=== PATIENT | female | born 1955 | race Caucasian/White ===

== ENCOUNTER 2021-11-22 10:42 | Emergency (ER) | payer MEDICARE ==
--- NOTE | 2021-11-22 13:58 | ED ---
Fall HPI - General Chief Complaint: Fall Stated Complaint: fall 2 days ago, hip/neck pain Time Seen by Provider: 11/22/21 13:01 Source: patient, RN notes reviewed Mode of arrival: ambulatory Limitations: no limitations - History of Present Illness Initial Comments: 66-year-old female presents emergency Department chief complaint of fall she is. Patient states she lost her balance. Patient seen in urgent care today and sent here for CT. Patient states she did fall back striking her head and complains of head neck pain. Patient went of buttocks, left hip pain. Denies any bowel, bladder incontinence or retention or saddle anesthesias. No upper shoulder weakness. No chest pain no upper back pain. Denies any blood thinners. - Related Data Allergies Allergy/AdvReac Type Severity Reaction Status Date / Time ketorolac [From Toradol] AdvReac Anaphylaxis Verified 11/22/21 10:56 Penicillins AdvReac Rash/Hives Verified 11/22/21 10:56 tramadol AdvReac Confusion Verified 11/22/21 10:56 Review of Systems ROS Statement: Those systems with pertinent positive or pertinent negative responses have been documented in the HPI. ROS Other: All systems not noted in ROS Statement are negative. Past Medical History Past Medical History: Diabetes Mellitus, Myocardial Infarction ([place]) Past Surgical History: Coronary Bypass/CABG, Heart Catheterization, Heart Catheterization With Stent Smoking Status: Never smoker Past Alcohol Use History: None Reported Past Drug Use History: None Reported General Exam Limitations: no limitations General appearance: alert, in no apparent distress Head exam: Present: atraumatic, normocephalic, normal inspection Eye exam: Present: normal appearance, PERRL, EOMI. Absent: scleral icterus, conjunctival injection, periorbital swelling ENT exam: Present: normal exam, mucous membranes moist Neck exam: Present: normal inspection, full ROM. Absent: tenderness, meningismus, lymphadenopathy Respiratory exam: Present: normal lung sounds bilaterally. Absent: respiratory distress, wheezes, rales, rhonchi, stridor Cardiovascular Exam: Present: regular rate, normal rhythm, normal heart sounds. Absent: systolic murmur, diastolic murmur, rubs, gallop, clicks Extremities exam: Present: normal inspection, full ROM, tenderness (Left hip), normal capillary refill. Absent: pedal edema, joint swelling, calf tenderness Back exam: Present: full ROM. Absent: tenderness, paraspinal tenderness, vert ebral tenderness Neurological exam: Present: alert, oriented X3, CN II-XII intact, reflexes normal. Absent: motor sensory deficit Skin exam: Present: warm, dry, intact, normal color. Absent: rash Course Vital Signs 11/22/21 10:50 Respiratory 20 Rate Blood Pressure 139/71 O2 Sat by Pulse 98 Oximetry Medical Decision Making - Medical Decision Making 58-year-old female presented from for a fall CT of brain and C-spine are negative x-ray of the hip and pelvis show no for acute and cranial process. Patient has no red flag symptoms over the discharged in stable condition return parameters discussed. Disposition Clinical Impression: Fall, Head contusion, Contusion, hip Disposition: HOME SELF-CARE Condition: Stable Instructions (If sedation given, give patient instructions): Head Injury (ED) Additional Instructions: Please return to the Emergency Department if symptoms worsen or any other concerns. Is patient prescribed a controlled substance at d/c from ED?: No Referrals: None,Stated [Primary Care Provider] - 1-2 days Time of Disposition: 13:58
[2021-11-22 14:16] VITALS: BP 144/78; PULSE 83; RESP 18
--- NOTE | 2021-11-23 16:43 | XR ---
EXAMINATION TYPE: XR Hip LT and AP Pelvis DATE OF EXAM: 11/22/2021 COMPARISON: NONE HISTORY: Fall injury with pain. TECHNIQUE: A single AP view of the pelvis is obtained. Two views of the left hip are obtained. FINDINGS: There is no acute fracture/dislocation evident in the pelvis. The sacroiliac joints appea r symmetric and unremarkable. Pubic symphysis is intact. Asymmetric moderate to severe axial joint sp kamran loss in the right hip. Surgical clips right groin noted. Two views of left hip show no acute fracture or dislocation. Partial visualization of fixation hardwa re in the left femur through healed fracture. Surgical clips left groin region noted. Stent graft di stally in the superficial femoral artery is partially imaged. IMPRESSION: There is no acute fracture or dislocation in the pelvis or left hip. Preliminary report provided by on site radiologist.
--- NOTE | 2021-11-23 16:45 | CT ---
EXAMINATION TYPE: CT brain jonathan rouse DATE OF EXAM: 11/22/2021 COMPARISON: NONE HISTORY: Headache and neck pain after fall injury CT DLP: 72496 mGycm. Automated Exposure Control for Dose Reduction was Utilized. TECHNIQUE: CT scan of the head and cervical spine are performed without contrast. FINDINGS: There is no acute intracranial hemorrhage, mass effect, or midline shift identified. The ventricles and sulci are within normal limits in size for patient's age. Calvarium is intact. Rodriguez- white matter differentiation fairly well maintained. The globes are intact and the visualized sinuses are clear. Cervical spine is visualized in its entirety from C1 through upper thoracic levels and demonstrates s atisfactory alignment without evidence of acute fracture or dislocation. Prevertebral soft tissue ap pears within normal limits. The C1-C2 articulation is within normal limits on the coronal images. V ertebral body heights are maintained. Moderate spurring and disc space narrowing C5-C6 and C6-C7 leve ls is present. Posterior calcified disc herniations efface the anterior thecal sac on sagittal and ax ial images at this level. Additional posterior disc herniation at C4-C5 level effaces the anterior th ecal sac. Thyroid gland appears within normal limits. Lung apices show no pneumothorax. There is part ial visualization of sternal wires noted. IMPRESSION: 1. There is no acute fracture or dislocation evident in the cervical spine. 2. No acute intracranial hemorrhage or midline shift is seen. Preliminary report provided by on site radiologist.
== END 2021-11-22 14:16 | disposition home or self-care (01) ==
LOC: EC 10:42
DX: T14.8XXA Other injury of unspecified body region, initial encounter (principal); S00.93XA Contusion of unspecified part of head, initial encounter; E11.9 Type 2 diabetes mellitus without complications; Z82.49 Family history of ischemic heart disease and other diseases of the circulatory system; Z88.6 Allergy status to analgesic agent; Z88.8 Allergy status to other drugs, medicaments and biological substances; Z88.0 Allergy status to penicillin; W19.XXXA Unspecified fall, initial encounter
CPT/HCPCS: 70450; 72125; 73502; 99284

== ENCOUNTER 2021-11-25 12:19 | Inpatient (IN) | payer MEDICARE ==
[2021-11-25] MEDS ORDERED: HYDROmorphone 0.5 MG/0.5 ML SYRINGE IVP STA (12:33)
--- NOTE | 2021-11-25 12:45 | ED ---
General Adult HPI - General Chief complaint: Chest Pain Stated complaint: poss heart attack Time Seen by Provider: 11/25/21 12:23 Source: patient, RN notes reviewed, old records reviewed Mode of arrival: wheelchair Limitations: no limitations - History of Present Illness Initial comments: 66-year-old female with severe chest pain which began about 30 minutes prior to arrival. Patient has sudden onset pain radiating to her bilateral shoulder blades, and her neck and jaw. She has previous history of CAD status post coronary artery bypass graft and stenting in the remote past. She is a known diabetic. Nonsmoker. Patient took 3 nitroglycerin at home without significant relief. - Related Data Allergies Allergy/AdvReac Type Severity Reaction Status Date / Time Iodine and Iodide Containing AdvReac Rash/Hives Verified 11/25/21 13:19 Produc ketorolac [From Toradol] AdvReac Anaphylaxis Verified 11/25/21 12:20 Penicillins AdvReac Rash/Hives Verified 11/25/21 12:20 tramadol AdvReac Confusion Verified 11/25/21 12:20 Review of Systems ROS Statement: Those systems with pertinent positive or pertinent negative responses have been documented in the HPI. ROS Other: All systems not noted in ROS Statement are negative. Past Medical History Past Medical History: Diabetes Mellitus, Myocardial Infarction ([place]) History of Any Multi-Drug Resistant Organisms: None Reported Past Surgical History: Coronary Bypass/CABG, Heart Catheterization, Heart Catheterization With Stent Past Psychological History: No Psychological Hx Reported Smoking Status: Never smoker Past Alcohol Use History: None Reported Past Drug Use History: None Reported General Exam Limitations: no limitations General appearance: alert, in no apparent distress Head exam: Present: atraumatic, normocephalic Eye exam: Present: normal appearance, PERRL ENT exam: Present: normal exam Neck exam: Present: normal inspection. Absent: tenderness, meningismus Respiratory exam: Present: normal lung sounds bilaterally. Absent: respiratory distress, wheezes Cardiovascular Exam: Present: regular rate, normal rhythm GI/Abdominal exam: Present: soft. Absent: distended, tenderness, guarding Extremities exam: Present: normal inspection, normal capillary refill. Absent: pedal edema Neurological exam: Present: alert, oriented X3, CN II-XII intact. Absent: motor sensory deficit Psychiatric exam: Present: anxious Skin exam: Present: diaphoretic Course Vital Signs 11/25/21 11/25/2122 12:21 12:22 12:29 Temperature 98.2 F Pulse Rate 88 92 Respiratory 16 26 H 24 Rate Blood Pressure 112/70 147/84 O2 Sat by Pulse 97 100 Oximetry 11/25/21 11/25/21 11/25/21 12:31 13:00 13:30 Temperature Pulse Rate 80 Respiratory 18 18 20 Rate Blood Pressure 147/84 117/71 117/65 O2 Sat by Pulse 98 98 98 Oximetry 11/25/21 11/25/21 14:00 14:30 Temperature Pulse Rate Respiratory 20 20 Rate Blood Pressure 156/72 116/68 O2 Sat by Pulse 100 100 Oximetry EKG Findings - EKG Comments: EKG Findings:: EKG: Sinus rhythm rate of 90, Q-wave and T-wave inversion in the inferior leads, no ST segment elevation TN interval 164, QRS duration 86, QTC 3 91. EKG: Sinus rhythm unchanged Q-wave and T-wave inversion from prior, no ST segment elevation rate of 83, TN interval 162, QRS duration 88, QTC 397. Medical Decision Making - Medical Decision Making 66-year-old female with chief complaint of chest pain radiating to the right arm and back. Patient is hypertensive upon arrival. She has pain radiating to the back, there was concern for both ACS and aortic pathology. EKG was sinus without ST segment elevation, CT angiography was performed which is negative for dissection or acute findings. Patient's initial troponin is negative but given her risk factor she will be kept in observation for stroke or headache enzymes, telemetry, cardiology consultation. Case discussed with [facility] [place]. - Lab Data Result diagrams: 11/25/21 12:36 11/25/21 12:36 Lab Results 11/25/21 11/25/21 11/25/21 Range/Units 12:36 12:36 12:36 WBC 5.0 (3.8-10.6) k/uL RBC 5.59 H (3.80-5.40) m/uL Hgb 15.8 (11.4-16.0) gm/dL Hct 47.6 H (34.0-46.0) % MCV 85.0 (80.0-100.0) fL MCH 28.2 (25.0-35.0) pg MCHC 33.2 (31.0-37.0) g/dL RDW 13.6 (11.5-15.5) % Plt Count 125 L (150-450) k/uL MPV 10.7 Neutrophils % 61 % Lymphocytes % 27 % Monocytes % 8 % Eosinophils % 1 % Basophils % 2 % Neutrophils # 3.0 (1.3-7.7) k/uL Lymphocytes # 1.3 (1.0-4.8) k/uL Monocytes # 0.4 (0-1.0) k/uL Eosinophils # 0.0 (0-0.7) k/uL Basophils # 0.1 (0-0.2) k/uL PT 10.2 (9.0-12.0) sec INR 0.9 (<1.2) APTT 24.2 (22.0-30.0) sec Sodium 139 (137-145) mmol/L Potassium 4.2 (3.5-5.1) mmol/L Chloride 104 (98-107) mmol/L Carbon Dioxide 16 L (22-30) mmol/L Anion Gap 19 mmol/L BUN 42 H (7-17) mg/dL Creatinine 1.34 H (0.52-1.04) mg/dL Est GFR (CKD-EPI)AfAm 47 (>60 ml/min/1.73 sqM) Est GFR (CKD-EPI)NonAf 41 (>60 ml/min/1.73 sqM) Glucose 221 H (74-99) mg/dL Calcium 9.0 (8.4-10.2) mg/dL Magnesium 1.9 (1.6-2.3) mg/dL Total Bilirubin 0.5 (0.2-1.3) mg/dL AST 37 H (14-36) U/L ALT 22 (4-34) U/L Alkaline Phosphatase 111 (38-126) U/L Troponin I (0.000-0.034) ng/mL Total Protein 7.1 (6.3-8.2) g/dL Albumin 4.4 (3.5-5.0) g/dL Lipase 204 (23-300) U/L 11/25/21 Range/Units 12:36 WBC (3.8-10.6) k/uL RBC (3.80-5.40) m/uL Hgb (11.4-16.0) gm/dL Hct (34.0-46.0) % MCV (80.0-100.0) fL MCH (25.0-35.0) pg MCHC (31.0-37.0) g/dL RDW (11.5-15.5) % Plt Count (150-450) k/uL MPV Neutrophils % % Lymphocytes % % Monocytes % % Eosinophils % % Basophils % % Neutrophils # (1.3-7.7) k/uL Lymphocytes # (1.0-4.8) k/uL Monocytes # (0-1.0) k/uL Eosinophils # (0-0.7) k/uL Basophils # (0-0.2) k/uL PT (9.0-12.0) sec INR (<1.2) APTT (22.0-30.0) sec Sodium (137-145) mmol/L Potassium (3.5-5.1) mmol/L Chloride (98-107) mmol/L Carbon Dioxide (22-30) mmol/L Anion Gap mmol/L BUN (7-17) mg/dL Creatinine (0.52-1.04) mg/dL Est GFR (CKD-EPI)AfAm (>60 ml/min/1.73 sqM) Est GFR (CKD-EPI)NonAf (>60 ml/min/1.73 sqM) Glucose (74-99) mg/dL Calcium (8.4-10.2) mg/dL Magnesium (1.6-2.3) mg/dL Total Bilirubin (0.2-1.3) mg/dL AST (14-36) U/L ALT (4-34) U/L Alkaline Phosphatase (38-126) U/L Troponin I <0.012 (0.000-0.034) ng/mL Total Protein (6.3-8.2) g/dL Albumin (3.5-5.0) g/dL Lipase (23-300) U/L Disposition Clinical Impression: Chest pain Disposition: ADMITTED IP TO THIS HOSP Condition: Stable Is patient prescribed a controlled substance at d/c from ED?: No Referrals: None,Stated [Primary Care Provider] - 1-2 days Time of Disposition: 15:01
[2021-11-25 12:54] LABS: Basophils # (A) 0.1 k/uL (0-0.2); Basophils % (A) 2 %; Eosinophils % (A) 1 %; HCT 47.6 % (34.0-46.0); HGB 15.8 gm/dL (11.4-16.0); Lymphocytes # (A) 1.3 k/uL (1.0-4.8); Lymphocytes % (A) 27 %; MCH 28.2 pg (25.0-35.0); MCHC 33.2 g/dL (31.0-37.0); Mean Platelet Volume 10.7; Monocytes # (A) 0.4 k/uL (0-1.0); Monocytes % (A) 8 %; Neutrophils % (A) 61 %; Platelet Count 125 k/uL (150-450); RBC 5.59 m/uL (3.80-5.40); RDW 13.6 % (11.5-15.5)
[2021-11-25 13:04] LABS: Albumin 4.4 g/dL (3.5-5.0); Magnesium 1.9 mg/dL (1.6-2.3); Potassium 4.2 mmol/L (3.5-5.1); Total Bilirubin 0.5 mg/dL (0.2-1.3); Total Protein 7.1 g/dL (6.3-8.2)
--- NOTE | 2021-11-25 13:08 | XR ---
EXAMINATION TYPE: XR chest 1V portable DATE OF EXAM: 11/25/2021 12:56 PM COMPARISON: None TECHNIQUE: XR chest 1V portable Frontal view of the chest. CLINICAL INDICATION:Female, 66 years old with history of Pain; FINDINGS: Lungs/Pleura: There is no evidence of pleural effusion, focal consolidation, or pneumothorax. Pulmonary vascularity: Unremarkable. Heart/mediastinum: Cardiomediastinal silhouette is enlarged and stable. Musculoskeletal: Degenerative changes of the shoulder joints. Midline sternotomy wires are noted. IMPRESSION: 1. No acute cardiopulmonary disease/process. 2. Cardiomegaly.
[2021-11-25] MEDS ORDERED: SODIUM CHLORIDE 0.9% 1,000 ML IV ONE (13:09)
[2021-11-25] MEDS ORDERED: FAMOTIDINE 20 MG/2 ML VIAL IV STA (13:09)
[2021-11-25] MEDS ORDERED: methylPREDNISolone SOD SUCCI 125 MG/2 ML VIAL IV STA (13:09)
[2021-11-25] MEDS ORDERED: diphenhydrAMINE 50 MG/ML 1 ML VIAL IVP STA (13:09)
[2021-11-25 13:17] LABS: INR 0.9 (<1.2); Partial Thromboplastin Time 24.2 sec (22.0-30.0); Prothrombin Time 10.2 sec (9.0-12.0)
--- NOTE | 2021-11-25 14:19 | CT ---
EXAMINATION TYPE: CT angio thor/abd pel aorta CT DLP: 1783.2 mGycm, Automated exposure control for dose reduction was used. DATE OF EXAM: 11/25/2021 1:48 PM COMPARISON: None CLINICAL INDICATION:Female, 66 years old with history of CP radiating to the back; TECHNIQUE: Dissection protocol: Multiple axial CT images of the chest, abdomen, and pelvis were obtai wally prior and to the administration of IV contrast. 3-D reformats and maximum intensity projection fo rmat were performed on a separate workstation. Contrast used:100 mL of Isovue 370 without and with IV Contrast, Oral contrast used: None FINDINGS: ARTERIAL VASCULATURE: Ascending and descending thoracic aorta are unremarkable. Scattered atheroscler osis are present. No evidence of dissection. The abdominal aorta demonstrates scattered atheroscleros is. The great vessels of the abdominal aorta are patent. There is no evidence of significant stenosis . No aneurysmal dilation. There is occlusion of the left superficial femoral artery along with the gr aft visualized. PULMONARY ARTERIAL VASCULATURE: Normal caliber. No evidence of filling defect to suggest pulmonary em bolus. VENOUS SYSTEM: Unremarkable. Lungs/pleura: No evidence of pneumothorax, pleural effusion or focal consolidation. Streaky atelectas is seen within the left lung base. Heart: Heart is mildly enlarged for size. There is coronary artery atherosclerosis present. Mediastinum: No gross evidence of adenopathy. Lower Neck: No significant findings. Abdomen: Liver: Unremarkable. Gallbladder and Bile ducts: The gallbladder surgically absent. Pancreas: Unremarkable. Spleen: Unremarkable. Adrenal glands: Unremarkable. Kidneys and Ureters: Unremarkable. No hydronephrosis. Stomach and Bowel: Mild thickening of the gastric wall measuring up to 8 mm with hyperemia most proxi mal antrum. No evidence of bowel obstruction. Peritoneum: No evidence of pneumoperitoneum, free fluid, or adenopathy. Bladder: Unremarkable. Reproductive: Unremarkable. Abdominal wall/soft tissues: Unremarkable. Musculoskeletal: The osseous structures appear intact. Left hip prosthesis present and appears intact . There is bony remodeling along the lateral aspect of the stem. IMPRESSION: 1. No evidence for thoracic aortic dissection, aneurysmal dilation. Scattered atherosclerosis of the arterial vasculature. 2. Mild antrum gastric wall thickening correlate for gastritis. 3. Bony remodeling of the osseous structures along the lateral aspect of the stem of the left hip pro sthesis. 4. Left superficial femoral artery stent graft is occluded.
[2021-11-25] MEDS ORDERED: ASPIRIN 325 MG TAB PO STA (14:57)
[2021-11-25] MEDS ORDERED: HYDROmorphone 0.5 MG/0.5 ML SYRINGE IVP PRN (14:57)
[2021-11-25] MEDS ORDERED: NALOXONE 0.4 MG/ML 1 ML VIAL IV PRN (14:57)
[2021-11-25] MEDS ORDERED: ACETAMINOPHEN TAB 325 MG TAB PO PRN (14:57)
[2021-11-25 16:59] LABS: Glucose,Whole Blood 262 mg/dL (70-110)
--- NOTE | 2021-11-25 17:34 | P.HPIM ---
History of Present Illness H&P Date: 11/25/21 Chief Complaint: Chest pain 66-year-old woman, never smoker, with a history of diabetes, PAD status post BKA of the left leg, CAD status post CABG was not followed up in 3 years with cardiology and primary care presented for chest pain. Patient says that starting today she started expressing chest pain, she has had episodes of this nature before and felt like the time that she was having a heart attack. Since her last heart attack 6 years ago, she had taken nitro when she started to experience pain like this, and usually it goes away after 2 nitro, however, today she had 3 nitro and the pain starting go away and actually started to expand. Therefore she became concerned and presented to the emergency room for further evaluation. Upon further questioning of patient's medication history, she's not taking any aspirin, Plavix, statin, beta pema. Her only medication is metformin as well as the nitro when necessary. She reports that this episode was associated with diaphoresis, nausea, chills, palpitations, radiation into the jaw into the back. She denies fevers, vomiting, cough, dyspnea, abdominal pain, constipation, diarrhea, dysuria, dyschezia, numbness/weakness of extremity is. In the emergency room, patient was afebrile, 139/73, heart rate 77, 100% on 2 L nasal cannula. CBC is unremarkable. Chemistries show an anion gap of ACIDOSIS with a gap of 19 and a bicarb of 16, BUN is 42, creatinine is 1.34. Liver function tests are unremarkable. Lipase was 204. Initial troponin is less than 0.012. Repeat troponin was less than 0.012. Coags were unremarkable. Chest x- ray shows cardiomegaly without acute pulmonary process. EKG demonstrates left axis deviation, sinus rhythm, evidence of old inferior myocardial infarction. Thoracic aorta CT doesn't show any evidence of thoracic aortic dissection, but did show left superficial femoral artery stent graft is totally occluded. All Systems reviewed and pertinent positives and negatives noted in HPI, all other symptoms are negative Gen: in no apparent distress, resting comfortably in bed Eyes: PERRL, no scleral injection or icterus HENT: normocephalic, atraumatic, good hearing acuity, moist mucous membranes Neck: no tracheal deviation, full range of motion Resp: good air exchange, breathing comfortably with no accessory muscle use, no tactile fremitus, clear to auscultation CVS: good distal perfusion x 4, no pitting edema, regular rate and rhythm without murmurs GI: soft, NTTP, ND, no hepatosplenomegaly : no suprapubic tenderness, no CVAT, fuller catheter not present MSK: no clubbing, no cyanosis, no noted contractures of extremities, absence of the left lower leg Skin: no noted rashes, petechiae; temperature of skin is appropriate Neuro: moving all existing extremities without signs of weakness, CN II-XII intact Psych: cooperative, euthymic mood, insight and judgment intact Labs and imaging reviewed as above Assessment/plan: Chest pain History of CAD status post CABG History of PAD status post BKA -Admit to observation, telemetry -Cardiology consult -Trend troponins -Aspirin, statin, metoprolol -Lipid panel, A1c, TSH -Echo Diabetes Obesity class I -Low-dose sliding scale insulin -Recommend outpatient weight loss Patient is full code Past Medical History Past Medical History: Diabetes Mellitus, Myocardial Infarction ([place]) History of Any Multi-Drug Resistant Organisms: None Reported Past Surgical History: Coronary Bypass/CABG, Heart Catheterization, Heart Catheterization With Stent Past Psychological History: No Psychological Hx Reported Smoking Status: Never smoker Past Alcohol Use History: None Reported Past Drug Use History: None Reported Medications and Allergies Home Medications Medication Instructions Recorded Confirmed Type metFORMIN HCL 500 mg PO BID 11/25/21 11/25/21 History Allergies Allergy/AdvReac Type Severity Reaction Status Date / Time Iodine and Iodide Containing AdvReac Rash/Hives Verified 11/25/21 16:13 Produc ketorolac [From Toradol] AdvReac Anaphylaxis Verified 11/25/21 16:13 Penicillins AdvReac Rash/Hives Verified 11/25/21 16:13 prednisone AdvReac racing Verified 11/25/21 16:13 heart, light headedness tramadol AdvReac Confusion Verified 11/25/21 16:13 Physical Exam Osteopathic Statement: *. No significant issues noted on an osteopathic structural exam other than those noted in the History and Physical/Consult. Vitals: Vital Signs Temp Pulse Pulse Resp BP BP Pulse Ox 11/25/21 16:32 97.9 F 115 H 16 173/90 100 11/25/21 16:00 71 18 143/69 100 11/25/21 15:30 70 18 132/60 99 11/25/21 15:00 77 18 139/73 100 11/25/21 14:30 20 116/68 100 11/25/21 14:00 20 156/72 100 11/25/21 13:30 20 117/65 98 11/25/21 13:00 80 18 117/71 98 11/25/21 12:31 18 147/84 98 11/25/21 12:29 92 24 147/84 100 11/25/21 12:22 26 H 11/25/21 12:21 98.2 F 88 16 112/70 97 Intake and Output 11/25/21 11/25/21 11/25/21 06:59 14:59 22:59 Other: Weight 77.111 kg Results CBC & Chem 7: 11/25/21 12:36 11/25/21 12:36 Labs: Abnormal Lab Results - Last 24 Hours (Table) 11/25/21 11/25/21 11/25/21 Range/Units 12:36 12:36 16:57 RBC 5.59 H (3.80-5.40) m/uL Hct 47.6 H (34.0-46.0) % Plt Count 125 L (150-450) k/uL Carbon Dioxide 16 L (22-30) mmol/L BUN 42 H (7-17) mg/dL Creatinine 1.34 H (0.52-1.04) mg/dL Glucose 221 H (74-99) mg/dL POC Glucose (mg/dL) 262 H (70-110) mg/dL AST 37 H (14-36) U/L
[2021-11-25 21:22] LABS: Glucose,Whole Blood 395 mg/dL (70-110)
[2021-11-25] MEDS: INSULIN ASPART (NovoLOG) 100 UNIT/ML VIAL SQ SCH (21:28)
[2021-11-26 06:45] LABS: Glucose,Whole Blood 208 mg/dL (70-110)
--- NOTE | 2021-11-26 10:13 | P.CRDCN ---
History of Present Illness History of present illness: HISTORY OF PRESENTING ILLNESS This is a pleasant 66-year-old with past medical history significant for CAD with prior 4 vessel CABG 25 years ago and additional 3 vessel CABG 9 years ago, previous stenting, PAD with prior left lower extremity BKA and attempted left femoral bypass which failed, complications from right femoral arterial access from prior heart catheterization, diabetes mellitus type 2, chronic kidney disease, medical noncompliance only taking metformin who presents secondary chest pain. She has been followed all over the country including prior CABG in [facility] as well as most recently evaluated in [facility]. She does have family and has been visiting the area and was originally from this area. She is not followed regularly with a paste up worker. She has only been taking metformin as she states she has felt okay and does not believe she is really needed the other medications. She admits her sugars are normally in the 150 to 200s range. She denies any tobacco history and does have significant family history of CAD. She states the chest pain was associated with nausea sensation and going up and her jaw which felt similar to prior angina before her prior heart attacks. Troponins were noted to be normal 3 and she had taken nitro at home without improvement however did receive Dilaudid with improvement. She does have chronic dyspnea on exertion. Denies any previous cardiomyopathy or heart failure. REVIEW OF SYSTEMS At the time of my exam: CONSTITUTIONAL: Denies fever or chills. CARDIOVASCULAR: +chest pain, +chronic shortness of breath, no orthopnea, PND or palpitations. RESPIRATORY: Denies cough. GASTROINTESTINAL: Denies abdominal pain, diarrhea, constipation, nausea or vomiting. MUSCULOSKELETAL: Denies myalgias. NEUROLOGIC: Denies numbness, tingling or weakness. ENDOCRINE: Denies fatigue, weight change, polydipsia or polyurina. GENITOURINARY: Denies burning, hematuria or urgency with micturation. HEMATOLOGIC: Denies history of anemia or bleeding. PHYSICAL EXAMINATION Vital signs reviewed. CONSTITUTIONAL: No apparent distress. HEENT: Head is normocephalic. Pupils are equal, round. Sclerae anicteric. Mucous membranes of the mouth are moist. No JVD. No carotid bruit. CHEST EXAMINATION: Lungs are clear to auscultation. No chest wall tenderness is noted on palpation or with deep breathing. HEART EXAMINATION: Regular rate and rhythm. S1, S2 heard. No murmurs, gallops or rub. ABDOMEN: Soft, nontender. Positive bowel sounds. EXTREMITIES: No lower extremity edema and no calf tenderness. +L BKA NEUROLOGIC EXAMINATION: Patient is awake, alert and oriented x3. ASSESSMENT 1. Chest pain similar to her prior angina however troponin is normal 3 and improved with Dilaudid 2. CAD with prior history of PCI as well as CABG initially 4 vessel and then repeat 9 years ago with 3 vessel 3. PAD with prior left bypass which failed with left BKA as well as toe amputations 4. DM type II 5. CKD 6. Hypertension 7. Medical noncompliance PLAN Discussed importance of medications and medical compliance given multiple medical issues. Patient understanding. We will add lisinopril given her significant diabetes as well as PAD and CAD. Additionally check lipid profile and add aspirin as well as Lipitor. Given symptoms similar to prior angina we will check a Lexiscan stress test to further evaluate as well as an echocardiogram. Patient with what appears to be multiple vascular issues in the past and may consider medical therapy however further recommendations after stress testing. Past Medical History Past Medical History: Diabetes Mellitus, Myocardial Infarction (ND) Additional Past Medical History / Comment(s): lle btka 3 toes amputated from r foot Last Myocardial Infarction Date:: unk History of Any Multi-Drug Resistant Organisms: None Reported Past Surgical History: Coronary Bypass/CABG, Heart Catheterization, Heart Catheterization With Stent Past Anesthesia/Blood Transfusion Reactions: No Reported Reaction Date of Last Stent Placement:: unk Past Psychological History: No Psychological Hx Reported Smoking Status: Never smoker Past Alcohol Use History: None Reported Past Drug Use History: None Reported Medications and Allergies Home Medications Medication Instructions Recorded Confirmed Type metFORMIN HCL 500 mg PO BID 11/25/21 11/25/21 History Allergies Allergy/AdvReac Type Severity Reaction Status Date / Time Iodine and Iodide Containing AdvReac Rash/Hives Verified 11/25/21 16:13 Produc ketorolac [From Toradol] AdvReac Anaphylaxis Verified 11/25/21 16:13 Penicillins AdvReac Rash/Hives Verified 11/25/21 16:13 prednisone AdvReac racing Verified 11/25/21 16:13 heart, light headedness tramadol AdvReac Confusion Verified 11/25/21 16:13 Physical Exam Vitals: Vital Signs Temp Pulse Pulse Resp BP BP Pulse Ox 11/26/21 08:00 60 14 11/26/21 07:00 97.4 F L 60 14 118/58 97 11/26/21 00:53 49 L 11/26/21 00:24 97.8 F 70 17 145/82 100 11/25/21 20:00 80 18 11/25/21 19:43 97.7 F 80 18 135/64 97 11/25/21 16:32 97.9 F 115 H 16 173/90 100 11/25/21 16:00 71 18 143/69 100 11/25/21 15:30 70 18 132/60 99 11/25/21 15:00 77 18 139/73 100 11/25/21 14:30 20 116/68 100 11/25/21 14:00 20 156/72 100 11/25/21 13:30 20 117/65 98 11/25/21 13:00 80 18 117/71 98 11/25/21 12:31 18 147/84 98 11/25/21 12:29 92 24 147/84 100 11/25/21 12:22 26 H 11/25/21 12:21 98.2 F 88 16 112/70 97 Intake and Output 11/25/21 11/26/21 11/26/21 22:59 06:59 14:59 Intake Total 500 500 Balance 500 500 Intake: Oral 500 500 Other: Voiding Method Toilet Toilet Weight 77.111 kg Results 11/25/21 12:36 11/25/21 12:36 Cardiac Enzymes 11/25/21 11/25/21 11/25/21 Range/Units 12:36 12:36 15:42 AST 37 H (14-36) U/L Troponin I <0.012 <0.012 (0.000-0.034) ng/mL 11/25/21 Range/Units 18:45 AST (14-36) U/L Troponin I 0.012 (0.000-0.034) ng/mL Coagulation 11/25/21 Range/Units 12:36 PT 10.2 (9.0-12.0) sec APTT 24.2 (22.0-30.0) sec CBC 11/25/21 Range/Units 12:36 WBC 5.0 (3.8-10.6) k/uL RBC 5.59 H (3.80-5.40) m/uL Hgb 15.8 (11.4-16.0) gm/dL Hct 47.6 H (34.0-46.0) % Plt Count 125 L (150-450) k/uL Comprehensive Metabolic Panel 11/25/21 Range/Units 12:36 Sodium 139 (137-145) mmol/L Potassium 4.2 (3.5-5.1) mmol/L Chloride 104 (98-107) mmol/L Carbon Dioxide 16 L (22-30) mmol/L BUN 42 H (7-17) mg/dL Creatinine 1.34 H (0.52-1.04) mg/dL Glucose 221 H (74-99) mg/dL Calcium 9.0 (8.4-10.2) mg/dL AST 37 H (14-36) U/L ALT 22 (4-34) U/L Alkaline Phosphatase 111 (38-126) U/L Total Protein 7.1 (6.3-8.2) g/dL Albumin 4.4 (3.5-5.0) g/dL Current Medications Generic Name Dose Route Start Last Admin Trade Name Freq PRN Reason Stop Dose Admin Acetaminophen 650 mg 11/25/21 14:57 Acetaminophen Tab 325 Mg Tab PO Q6HR PRN Mild Pain or Fever > 100.5 Hydromorphone HCl 0.5 mg 11/25/21 14:57 11/25/21 17:18 Hydromorphone 0.5 Mg/0.5 Ml Syringe IVP 0.5 mg Q3HR PRN Administration Moderate Pain (Scale 4 to 6) Insulin Aspart 0 unit 11/25/21 21:00 11/25/21 21:28 Insulin Aspart (Novolog) 100 Unit/Ml Vial SQ 15 unit ACHS FELIPE Administration Protocol Naloxone HCl 0.2 mg 11/25/21 14:57 Naloxone 0.4 Mg/Ml 1 Ml Vial IV Q2M PRN Opioid Reversal Intake and Output 11/25/21 11/26/21 11/26/21 22:59 06:59 14:59 Intake Total 500 500 Balance 500 500 Intake: Oral 500 500 Other: Voiding Method Toilet Toilet Weight 77.111 kg 11/25/21 12:36 11/25/21 12:36
[2021-11-26] MEDS: lisinopriL 5 MG TAB PO SCH (11:11)
[2021-11-26] MEDS: ASPIRIN 81 MG PO SCH (11:11)
[2021-11-26] MEDS: INSULIN ASPART (NovoLOG) 100 UNIT/ML VIAL SQ SCH ×4 (11:12→20:05)
[2021-11-26 12:06] LABS: Glucose,Whole Blood 231 mg/dL (70-110)
--- NOTE | 2021-11-26 14:26 | P.PN ---
Subjective Progress Note Date: 11/26/21 No new complaints today. Pending Nuclear stress test tomorrow. Gen: in no apparent distress, resting comfortably in bed Eyes: PERRL, no scleral injection or icterus HENT: normocephalic, atraumatic, good hearing acuity, moist mucous membranes Neck: no tracheal deviation, full range of motion Resp: good air exchange, breathing comfortably with no accessory muscle use, no tactile fremitus, clear to auscultation CVS: good distal perfusion x 4, no pitting edema, regular rate and rhythm without murmurs GI: soft, NTTP, ND, no hepatosplenomegaly : no suprapubic tenderness, no CVAT, fuller catheter not present MSK: no clubbing, no cyanosis, no noted contractures of extremities, absence of the left lower leg Skin: no noted rashes, petechiae; temperature of skin is appropriate Neuro: moving all existing extremities without signs of weakness, CN II-XII intact Psych: cooperative, euthymic mood, insight and judgment intact Labs and imaging reviewed as above Assessment/plan: Chest pain History of CAD status post CABG History of PAD status post BKA -Admit to observation, telemetry -Cardiology consult -Trend troponins -Aspirin, statin, metoprolol -Lipid panel, A1c, TSH -Echo Diabetes Obesity class I -Low-dose sliding scale insulin -Recommend outpatient weight loss Patient is full code Objective - Vital Signs Vital signs: Vital Signs Temp 97.6 F 11/26/21 13:37 Pulse 69 11/26/21 13:37 Resp 12 11/26/21 13:37 BP 130/69 11/26/21 13:37 Pulse Ox 99 11/26/21 13:37 FiO2 Intake & Output 11/25/21 11/26/21 11/26/21 18:59 06:59 18:59 Intake Total 1000 118 Balance 1000 118 Weight 77.111 kg Intake: Oral 1000 118 Other: Voiding Method Toilet Toilet # Voids 2 - Labs CBC & Chem 7: 11/25/21 12:36 11/25/21 12:36 Labs: Abnormal Lab Results - Last 24 Hours (Table) 11/25/21 11/25/21 11/26/21 Range/Units 16:57 21:20 06:43 POC Glucose (mg/dL) 262 H 395 H 208 H (70-110) mg/dL 11/26/21 Range/Units 12:04 POC Glucose (mg/dL) 231 H (70-110) mg/dL
[2021-11-26 16:20] LABS: Chol/HDL Ratio 5.51 Ratio; LDL Cholesterol,Calculated 103.7 mg/dL (0.0-131.0)
[2021-11-26 16:27] LABS: Glucose,Whole Blood 211 mg/dL (70-110)
[2021-11-26 20:15] LABS: Glucose,Whole Blood 150 mg/dL (70-110)
[2021-11-26] MEDS: ATORVASTATIN 40 MG TAB PO SCH (20:15)
[2021-11-27] MEDS ORDERED: AMINOPHYLLINE 500 MG/20 ML VIAL IV PRN (06:00)
[2021-11-27] MEDS ORDERED: CAFFEINE CITRATE 60 MG/3 ML VIAL IV PRN (06:00)
[2021-11-27] MEDS ORDERED: REGADENOSON 0.4 MG/5 ML SYRINGE IV PRN (06:00)
[2021-11-27 07:12] LABS: Glucose,Whole Blood 168 mg/dL (70-110)
--- NOTE | 2021-11-27 09:35 | CA ---
Transthoracic Echo Report Name: Josi Lainez Age: 66 Gender: F : 1955 Exam Date: 11/27/2021 07:57 Exam Location: [place] [facility] Ht (in): 61 Wt (lb): 170 Ordering Physician: Bj Beth DO ([email or web address]) Attending/Referring Phys: Head Golf Professional Rosa Petersen RDCS Procedure CPT: Indications: re: CABG Cardiac Hx: Technical Quality: Good Contrast 1: Total Dose (mL): Contrast 2: Total Dose (mL): MEASUREMENTS (Male / Female) Normal Values 2D ECHO LV Diastolic Diameter PLAX 5.5 cm 4.2 - 5.9 / 3.9 - 5.3 cm LV Systolic Diameter PLAX 4.1 cm IVS Diastolic Thickness 1.1 cm 0.6 - 1.0 / 0.6 - 0.9 cm LVPW Diastolic Thickness 1.1 cm 0.6 - 1.0 / 0.6 - 0.9 cm LV Relative Wall Thickness 0.4 RV Internal Dim ED PLAX 2.4 cm LA Systolic Diameter LX 3.9 cm 3.0 - 4.0 / 2.7 - 3.8 cm LV Diastolic Volume MOD 4C 91.7 cm??? LV Systolic Volume MOD 4C 60.7 cm??? LV Ejection Fraction MOD 4C 33.8 % LV Diastolic Length 4C 7.6 cm LV Systolic Length 4C 6.9 cm LV Diastolic Volume MOD 2C 62.1 cm??? LV Systolic Volume MOD 2C 41.9 cm??? LV Ejection Fraction MOD 2C 32.4 % LV Diastolic Length 2C 7.5 cm LV Systolic Length 2C 6.7 cm LA Volume 36.0 cm??? 18 - 58 / 22 - 52 cm??? M-MODE Aortic Root Diameter MM 3.2 cm MV E Point Septal Separation 1.5 cm AV Cusp Separation MM 2.0 cm DOPPLER AV Peak Velocity 109.4 cm/s AV Peak Gradient 4.8 mmHg MV Area PHT 3.9 cm??? Mitral E Point Velocity 87.7 cm/s Mitral A Point Velocity 93.0 cm/s Mitral E to A Ratio 0.9 MV Deceleration Time 194.0 ms MV E' Velocity 4.0 cm/s Mitral E to MV E' Ratio 22.1 TR Peak Velocity 192.2 cm/s TR Peak Gradient 14.8 mmHg Right Ventricular Systolic Press 19.0 mmHg FINDINGS Left Ventricle Mildly increased septal wall thickness. Mildly increased posterior wall thickness. Mildly increased left ventricular diastolic diameter. Left ventricular ejection fraction is estimated at 30-35 %. Moderately reduced global left ventricular systolic function. Right Ventricle Normal right ventricular size and function. Right ventricular systolic pressure within normal limits. Right Atrium Normal right atrial size. Left Atrium Mildly increased left atrial diameter. No evidence for an atrial septal defect. Mitral Valve Mitral annular calcification. Trace mitral regurgitation. Aortic Valve Trileaflet aortic valve. No aortic valve stenosis or regurgitation. Tricuspid Valve Mild tricuspid regurgitation. Pulmonic Valve Trace pulmonic regurgitation. Pericardium Normal pericardium. No pericardial effusion. Aorta Normal size aortic root and proximal ascending aorta. CONCLUSIONS Mildly dilated left ventricle with severe LV dysfunction ejection fraction 30% Previewed by: Dr. Mt Dhaliwal MD (Electronically Signed) Final Date: 27 November 2021 09:34
--- NOTE | 2021-11-27 09:47 | P.PN ---
Subjective Progress Note Date: 11/27/21 HISTORY OF PRESENT ILLNESS: This is a pleasant 66-year-old with past medical history significant for CAD with prior 4 vessel CABG 25 years ago and additional 3 vessel CABG 9 years ago, previous stenting, PAD with prior left lower extremity BKA and attempted left femoral bypass which failed, complications from right femoral arterial access from prior heart catheterization, diabetes mellitus type 2, chronic kidney disease, medical noncompliance only taking metformin who presents secondary chest pain. She has been followed all over the country including prior CABG in [facility] as well as most recently evaluated in [facility]. She does have family and has been visiting the area and was originally from this area. She is not followed regularly with a molten iron pourer. She has only been taking metformin as she states she has felt okay and does not believe she is really needed the other medications. She admits her sugars are normally in the 150 to 200s range. She denies any tobacco history and does have significant family history of CAD. She states the chest pain was associated with nausea sensation and going up and her jaw which felt similar to prior angina before her prior heart attacks. Troponins were noted to be normal 3 and she had taken nitro at home without improvement however did receive Dilaudid with improvement. She does have chronic dyspnea on exertion. Denies any previous cardiomyopathy or heart failure. 11/27/2021 Patient examined this morning at the bedside. Patient denies any further episodes of chest pain or pressure. She denies shortness of breath. Patient's vital signs are stable. Echocardiogram completed revealing ejection fraction 30-35%, trace MR and mild TR. PHYSICAL EXAM: VITAL SIGNS: Reviewed. GENERAL: Well-developed in no acute distress. NECK: Supple. No JVD or thyromegaly LUNGS: Respirations even and unlabored. Lungs essentially clear to auscultation bilaterally. HEART: Regular rate and rhythm. S1 and S2 heard. EXTREMITIES: Left BKA. No clubbing or cyanosis. Peripheral pulses intact. No lower extremity edema ASSESSMENT: 1. Chest pain similar to her prior angina however troponin is normal 3 and improved with Dilaudid 2. CAD with prior history of PCI as well as CABG initially 4 vessel and then repeat 9 years ago with 3 vessel 3. PAD with prior left bypass which failed with left BKA as well as toe amputations 4. DM type II 5. CKD 6. Hypertension 7. Medical noncompliance PLAN: Continue current cardiac medications Patient to undergo Lexiscan stress test today to assess for ischemia If negative, the patient may be discharged home from a cardiac standpoint Nurse practitioner note has been reviewed by physician. Signing provider agrees with the documented findings, assessment, and plan of care. Objective - Vital Signs Vital signs: Vital Signs Temp 98.1 F 11/27/21 07:00 Pulse 73 11/27/21 07:00 Resp 15 11/27/21 07:00 BP 115/63 11/27/21 07:00 Pulse Ox 99 11/27/21 07:00 FiO2 Intake & Output 11/26/21 11/27/21 11/27/21 18:59 06:59 18:59 Intake Total 236 Balance 236 Intake: Oral 236 Other: Voiding Method Toilet Toilet Toilet # Voids 2 1 - Labs CBC & Chem 7: 11/25/21 12:36 11/25/21 12:36 Labs: Abnormal Lab Results - Last 24 Hours (Table) 11/25/21 11/26/21 11/26/21 Range/Units 12:36 12:04 16:25 POC Glucose (mg/dL) 231 H 211 H (70-110) mg/dL Triglycerides 161.00 H (0.00-149.00) mg/dL HDL Cholesterol 30.10 L (40.00-60.00) mg/dL 11/26/21 11/27/21 Range/Units 20:03 07:10 POC Glucose (mg/dL) 150 H 168 H (70-110) mg/dL Triglycerides (0.00-149.00) mg/dL HDL Cholesterol (40.00-60.00) mg/dL
[2021-11-27 12:19] LABS: Glucose,Whole Blood 163 mg/dL (70-110)
[2021-11-27] MEDS: INSULIN ASPART (NovoLOG) 100 UNIT/ML VIAL SQ SCH ×3 (13:35→20:32)
[2021-11-27] MEDS: METOPROLOL SUCCINATE (ER) 25 MG TAB.ER.24H PO SCH (14:11)
[2021-11-27] MEDS: ASPIRIN 81 MG PO SCH (14:11)
[2021-11-27] MEDS: lisinopriL 5 MG TAB PO SCH (14:12)
--- NOTE | 2021-11-27 15:15 | NM ---
EXAMINATION TYPE: NM stress lexiscan cardiolite DATE OF EXAM: 11/27/2021 COMPARISON: NONE HISTORY: Chest pain TECHNIQUE: After the intravenous administration of 9.9 mCi Tc 99m Sestamibi - Cardiolite resting SPE CT images acquired 45 minutes post injection. The patient received 0.4mg Lexiscan, 24.5 mCi Tc 99m Sestamibi - Stress images obtained [address] injection FINDINGS: Review of stress and rest SPECT images demonstrates large fixed defect involving the inferior and lat eral wall of the myocardium. Gated analysis shows reduced abnormal wall motion along the inferior wa ll of the myocardium and lateral wall. With an estimated left ventricular ejection fraction of 29 %. IMPRESSION: 1. There is a fixed defect involving the inferior and lateral wall of the myocardium. There appears t o be stress induced reversible area of ischemia involving the apex of the myocardium. 2. Abnormal ejection fraction and wall motion of 29%.
--- NOTE | 2021-11-27 15:32 | CA ---
Lexiscan Nuclear Stress Test Report Name: Josi Lainez Exam Date: 11/27/2021 13:06 Exam Location: [place] [facility] Ht (in): 61 Wt (lb): 170 BSA: 1.76 Ordering Phys: Bj Beth DO Referring Phys: EMILIANO,, Technologist: Miah Cabral Age: 66 Gender: F : 1955 Procedure CPT: Indications: Reflex order-Stress test ICD-10 Codes: Patient History: Chest Pain, Shortness of breath, ASCAD Medications: Meds past 24 hrs: Pretest Chest Pain: STRESS TEST Lexiscan Protocol Exercise Duration (min:sec): 02:[address] Depressions (mm): Angina Score: Mcbride Score: Resting HR (bpm): 69 Peak HR (bpm): 82 Resting BP (mmHg): 125 / 61 Peak BP (mmHg): 131 / 68 MPHR: 152 Target HR: 129 % MPHR: 54 METS: 1.0 Total Dose: Peak Dose: Atropine: Double Product: 24581 BP Response: Stress Termination: Infusion complete Stress Symptoms: Nausea Stress Summary: ECG ANALYSIS Resting ECG: Stress ECG: CONCLUSIONS Heart rate and blood pressure during Lexiscan infusion remained normal No new ECG changes Occasional PVCs New PA portion will be reported separately Dr. Mt Dhaliwal MD (Electronically Signed) Final Date: 27 November 2021 15:31
--- NOTE | 2021-11-27 16:39 | P.PN ---
Subjective Progress Note Date: 11/27/21 Nuc stress test + for reversible ischemia. Likely [facility] required - will monitor overnight and make NPO at midnight Gen: in no apparent distress, resting comfortably in bed Eyes: PERRL, no scleral injection or icterus HENT: normocephalic, atraumatic, good hearing acuity, moist mucous membranes Neck: no tracheal deviation, full range of motion Resp: good air exchange, breathing comfortably with no accessory muscle use, no tactile fremitus, clear to auscultation CVS: good distal perfusion x 4, no pitting edema, regular rate and rhythm without murmurs GI: soft, NTTP, ND, no hepatosplenomegaly : no suprapubic tenderness, no CVAT, fuller catheter not present MSK: no clubbing, no cyanosis, no noted contractures of extremities, absence of the left lower leg Skin: no noted rashes, petechiae; temperature of skin is appropriate Neuro: moving all existing extremities without signs of weakness, CN II-XII intact Psych: cooperative, euthymic mood, insight and judgment intact Labs and imaging reviewed as above Assessment/plan: Unstable Angina History of CAD status post CABG History of PAD status post BKA -Admit to observation, telemetry -Cardiology consult -Trend troponins -Aspirin, statin, metoprolol -Lipid panel, A1c, TSH -Echo -NPO at midnight for possible [facility] Diabetes Obesity class I -Low-dose sliding scale insulin -Recommend outpatient weight loss Patient is full code Objective - Vital Signs Vital signs: Vital Signs Temp 98.2 F 11/27/21 14:56 Pulse 79 11/27/21 14:56 Resp 15 11/27/21 14:56 BP 134/82 11/27/21 14:56 Pulse Ox 97 11/27/21 14:56 FiO2 Intake & Output 11/26/21 11/27/21 11/27/21 18:59 06:59 18:59 Intake Total 236 Balance 236 Intake: Oral 236 Other: Voiding Method Toilet Toilet Toilet # Voids 2 1 1 - Labs CBC & Chem 7: 11/25/21 12:36 11/25/21 12:36 Labs: Abnormal Lab Results - Last 24 Hours (Table) 11/26/21 11/27/21 11/27/21 Range/Units 20:03 07:10 12:17 POC Glucose (mg/dL) 150 H 168 H 163 H (70-110) mg/dL
[2021-11-27 17:23] LABS: Glucose,Whole Blood 236 mg/dL (70-110)
[2021-11-27 19:42] LABS: Glucose,Whole Blood 254 mg/dL (70-110)
[2021-11-27] MEDS: ATORVASTATIN 40 MG TAB PO SCH (20:32)
[2021-11-28 06:54] LABS: Glucose,Whole Blood 122 mg/dL (70-110)
[2021-11-28] MEDS ORDERED: NITROGLYCERIN SL TABS 0.4 MG TAB SUBLINGUAL PRN (07:45)
[2021-11-28] MEDS ORDERED: ALPRAZolam 0.25 MG TAB PO PRN (07:45)
[2021-11-28] MEDS ORDERED: ALPRAZolam 0.5 MG TAB PO PRN (07:45)
[2021-11-28] MEDS ORDERED: ASPIRIN 325 MG TAB PO STA (07:45)
[2021-11-28] MEDS ORDERED: ATORVASTATIN 80 MG TAB PO STA (07:45)
[2021-11-28] MEDS ORDERED: SODIUM CHLORIDE 0.9% 1,000 ML in EMPTY BAG 1 BAG IV SCH (07:45)
[2021-11-28] MEDS: INSULIN ASPART (NovoLOG) 100 UNIT/ML VIAL SQ SCH ×2 (07:54→12:55)
[2021-11-28] MEDS: METOPROLOL SUCCINATE (ER) 25 MG TAB.ER.24H PO SCH (08:33)
[2021-11-28] MEDS: lisinopriL 5 MG TAB PO SCH (08:33)
[2021-11-28 10:32] VITALS: RESP 14
[2021-11-28] MEDS ORDERED: HEPARIN SODIUM 1,000 UN/ML (10ML VL) ONE (11:01)
[2021-11-28] MEDS ORDERED: methylPREDNISolone SOD SUCCI 125 MG/2 ML VIAL ONE (11:01)
[2021-11-28] MEDS ORDERED: fentaNYL (PF) 50 MCG/ML 2 ML AMP ONE (11:01)
[2021-11-28] MEDS ORDERED: VERAPAMIL 2.5 MG/ML 2 ML AMP ONE (11:02)
[2021-11-28] MEDS ORDERED: diphenhydrAMINE 50 MG/ML 1 ML VIAL ONE (11:02)
[2021-11-28] MEDS ORDERED: methylPREDNISolone SOD SUCCI 125 MG/2 ML VIAL IV ONE (11:20)
[2021-11-28] MEDS ORDERED: diphenhydrAMINE 50 MG/ML 1 ML VIAL IVP ONE (11:20)
[2021-11-28] MEDS ORDERED: IV FLUID CONTINUATION 1,000 ML IV ONE (11:20)
[2021-11-28] MEDS ORDERED: fentaNYL (PF) 50 MCG/ML 2 ML AMP IV ONE (11:24)
[2021-11-28] MEDS ORDERED: MIDAZOLAM 2 MG/2 ML VIAL IV ONE (11:24)
[2021-11-28] MEDS ORDERED: LIDOCAINE 1% INJ 10MG/ML (30 ML VIAL-PF) SQ ONE (11:24)
[2021-11-28] MEDS ORDERED: IOPAMIDOL-370 125ML BTL INJ ONE ×2 (11:52)
[2021-11-28] MEDS ORDERED: IOPAMIDOL-370 100ML BTL INJ ONE (12:07)
--- NOTE | 2021-11-28 12:18 | P.CARDCATH ---
Description of Procedure: PROCEDURES PERFORMED: Left heart catheterization, bilateral coronary angiography, Radial to apical LAD angiography, JACOBS to mid LAD angiography, aortic angiography INDICATION: Abnormal stress test HISTORY: Patient is a pleasant 66-year-old female with history of coronary artery disease status post CABG 2 with initial four-vessel bypass and then 3 vessel bypass, results not available. She presented with chest pain off-and-on somewhat worsened over last few months and therefore Lexiscan stress test was performed which showed predominantly fixed inferior and lateral infarcts with possible apical ischemia. Therefore heart catheterization was recommended. CONSENT:I have discussed the risks, benefits and alternative therapies for the above-mentioned procedure and for both sedation/analgesia as well as necessary blood product administration, if indicated, as they pertain to this patient. The patient has indicated understanding and acceptance of the risks and procedures discussed. PROCEDURE: After the risks, benefits and alternatives of the above mentioned procedure explained in detail with the patient, informed consent was obtained. Patient was taken to the catheterization lab and prepped and draped in usual fashion. 1% lidocaine was used to anesthetize the left femoral artery. A 6- Macedonian sheath was placed in the left femoral artery using modified Seldinger technique. Left coronary angiography was performed with a 6-Macedonian JL 4.0 catheter and right coronary angiography was performed with a 6-Macedonian FR4 ca theter in various views. A 6-Macedonian FR4 catheter was inserted into the left ventricle and pressure measurements were obtained. Aortic root angiography was performed which showed no dissection, no aneurysm and only remaining aortic graft a left radial to LAD. Therefore left radial to LAD angiography was performed with a 6-Macedonian AR to catheter. There was consideration of LANI however no obvious clips had been seen. LANI angiography was performed which showed no graft. JACOBS to LAD angiography was performed with a 6-Macedonian FR4 catheter. Left femoral angiography performed showed a SFA 100% stenosis however adequate anatomy for closure. A 6-Macedonian Angio-Seal sheath was placed with hemostasis achieved. The patient tolerated the procedure well. Patient was transported back to the post catheterization holding area in stable condition. Conscious Sedation: Patient was monitored under the direct supervision of vision of myself for conscious sedation using Versed and fentanyl for a total duration of [] minutes HEMODYNAMICS: Ao: 132/71 LV: 131/2, LVEDP 11 SELECTIVE CORONARY ARTERIOGRAPHY: LEFT MAIN: The left main is a moderate caliber vessel which bifurcates into the LAD and circumflex and is diffusely diseased with 80% left main stenosis. LEFT ANTERIOR DESCENDING CORONARY ARTERY: LAD is a large caliber vessel which wraps around to the apex. There is 100% proximal LAD stenosis. LEFT CIRCUMFLEX CORONARY ARTERY: Left circumflex is a moderate caliber vessel with 100% proximal circumflex stenosis. RIGHT CORONARY ARTERY: The right coronary artery is a large caliber vessel which gives off a PDA and PLV branch and is the dominant vessel. There is 100% proximal RCA stenosis. JACOBS to LAD: widely patent and only feeds the mid LAD with collaterals to the RCA Left radial artery to distal LAD: widely patent with collaterals to the RCA FINAL IMPRESSION: 1. [place] CAD as described above including 80% left main, 100% proximal LAD, 100% proximal circumflex, 100% proximal RCA stenosis with no good eek interventional targets 2. Patent JACOBS to the mid LAD as well as left radial to distal LAD 3. Normal left-sided filling pressures PLAN: 1. Aggressive risk factor modification per most recent ACC/AHA guidelines. 2. Patient without good eek interventional targets and only 2 remaining patent grafts JACOBS to LAD and left radial to distal LAD. Continue with medical therapy.
[2021-11-28] MEDS: ASPIRIN 81 MG PO SCH (12:33)
[2021-11-28 12:44] LABS: Basophils % (A) 0 %; Eosinophils % (A) 1 %; HCT 40.3 % (34.0-46.0); HGB 13.3 gm/dL (11.4-16.0); Lymphocytes # (A) 0.8 k/uL (1.0-4.8); Lymphocytes % (A) 21 %; MCH 28.3 pg (25.0-35.0); MCHC 33.1 g/dL (31.0-37.0); MCV 85.4 fL (80.0-100.0); Mean Platelet Volume 10.8; Monocytes # (A) 0.2 k/uL (0-1.0); Monocytes % (A) 5 %; Neutrophils # (A) 2.8 k/uL (1.3-7.7); Neutrophils % (A) 71 %; RBC 4.71 m/uL (3.80-5.40); RDW 13.6 % (11.5-15.5)
[2021-11-28 12:45] LABS: Glucose,Whole Blood 145 mg/dL (70-110)
[2021-11-28 12:54] LABS: African American GFR (CKD) >90 (>60 ml/min/1.73 sqM); Albumin 3.1 g/dL (3.5-5.0); Anion Gap 10 mmol/L; Blood Urea Nitrogen 24 mg/dL (7-17); Calcium 7.7 mg/dL (8.4-10.2); Carbon Dioxide 22 mmol/L (22-30); Chloride 106 mmol/L (98-107); Glucose 129 mg/dL (74-99); Non-African American GFR(CKD) 85 (>60 ml/min/1.73 sqM); Potassium 3.8 mmol/L (3.5-5.1); Sodium 138 mmol/L (137-145)
[2021-11-28 13:29] LABS: Anisocytosis (M) Present; Platelet Count 88 k/uL (150-450); Poikilocytosis (M) Present
[2021-11-28 13:49] VITALS: TEMP 97.9
--- NOTE | 2021-11-28 15:47 | P.DS ---
Providers Date of admission: 11/27/21 16:37 Expected date of discharge: 11/28/21 Attending physician: Ramos Todd MD Consults: 11/25/21 14:57 Consult Physician Routine Consulting Provider: Severiano Sinclair Consult Reason/Comments: CP Do you want consulting provider notified?: Yes Primary care physician: Stated None Hospital Course: 66-year-old woman, never smoker, with a history of diabetes, PAD status post BKA of the left leg, CAD status post CABG was not followed up in 3 years with cardiology and primary care presented for chest pain. Patient says that starting today she started expressing chest pain, she has had episodes of this nature before and felt like the time that she was having a heart attack. Since her last heart attack 6 years ago, she had taken nitro when she started to experience pain like this, and usually it goes away after 2 nitro, however, today she had 3 nitro and the pain starting go away and actually started to expand. Therefore she became concerned and presented to the emergency room for further evaluation. Upon further questioning of patient's medication history, she's not taking any aspirin, Plavix, statin, beta pema. Her only medication is metformin as well as the nitro when necessary. She reports that this episode was associated with diaphoresis, nausea, chills, palpitations, radiation into the jaw into the back. She denies fevers, vomiting, cough, dyspnea, abdominal pain, constipation, diarrhea, dysuria, dyschezia, numbness/weakness of extremity is. In the emergency room, patient was afebrile, 139/73, heart rate 77, 100% on 2 L nasal cannula. CBC is unremarkable. Chemistries show an anion gap of ACIDOSIS with a gap of 19 and a bicarb of 16, BUN is 42, creatinine is 1.34. Liver function tests are unremarkable. Lipase was 204. Initial troponin is less than 0.012. Repeat troponin was less than 0.012. Coags were unremarkable. Chest x- ray shows cardiomegaly without acute pulmonary process. EKG demonstrates left axis deviation, sinus rhythm, evidence of old inferior myocardial infarction. Thoracic aorta CT doesn't show any evidence of thoracic aortic dissection, but did show left superficial femoral artery stent graft is totally occluded. Troponins were trended and ACS was ruled out. Echocardiogram was done which showed EF of 30-35%. Cardiology was consulted and recommended stress test. Stress test was positive. Patient underwent cardiac catheterization reported as below: 1. [place] CAD as described above including 80% left main, 100% proximal LAD, 100% proximal circumflex, 100% proximal RCA stenosis with no good paimiut interventional targets 2. Patent JACOBS to the mid LAD as well as left radial to distal LAD 3. Normal left-sided filling pressures Cardiology recommended aggressive risk factor modification and cleared the patient for discharge. Patient was seen and examined prior to her cardiac cath on 11/28/2021. She reported complete resolution of her chest pain. She'll be discharged home on aspirin, Lipitor, lisinopril and metoprolol. She is advised follow-up with cardiology within 1 week of discharge. General: non toxic, no distress, appears at stated age Derm: warm, dry Head: atraumatic, normocephalic, symmetric Eyes: EOMI, no lid lag, anicteric sclera Mouth: no lip lesion, mucus membranes moist Cardiovascular: S1S2 reg, no murmur Lungs: CTA bilateral, no rhonchi, no rales , no accessory muscle use Ext: no gross muscle atrophy, no edema, no contractures Neuro: no focal neuro deficits Psych: Alert, oriented, appropriate affect Discharge diagnoses: Unstable Angina Systolic CHF not in acute exacerbation History of CAD status post CABG History of PAD status post BKA Diabetes Obesity class I This complex discharge took about 40 minutes to complete. Pertinent Studies: Chest x-ray Thoracic aorta CT Echocardiogram Stress test Procedures: Cardiac catheterization Patient Condition at Discharge: Stable Plan - Discharge Summary Discharge Rx Participant: Yes New Discharge Prescriptions: New Metoprolol Succinate (ER) [Toprol XL] 12.5 mg PO DAILY #15 tab Acetaminophen Tab [Tylenol] 650 mg PO Q6HR PRN tab PRN Reason: Mild Pain Or Fever > 100.5 lisinopriL [Zestril] 5 mg PO DAILY #30 tab Aspirin 81 mg PO DAILY #30 tab Atorvastatin [Lipitor] 40 mg PO HS #30 tab Continue metFORMIN HCL 500 mg PO BID Discharge Medication List metFORMIN HCL 500 mg PO BID 11/25/21 [History] Acetaminophen Tab [Tylenol] 650 mg PO Q6HR PRN tab 11/27/21 [Rx] Aspirin 81 mg PO DAILY #30 tab 11/27/21 [Rx] Atorvastatin [Lipitor] 40 mg PO HS #30 tab 11/27/21 [Rx] Metoprolol Succinate (ER) [Toprol XL] 12.5 mg PO DAILY #15 tab 11/27/21 [Rx] lisinopriL [Zestril] 5 mg PO DAILY #30 tab 11/27/21 [Rx] Follow up Appointment(s)/Referral(s): Bj Beth DO [STAFF PHYSICIAN] - 1 Week None,Stated [Primary Care Provider] - 1-2 days Activity/Diet/Wound Care/Special Instructions: Diet: Cardiac Follow-up with your PCP within 1-2 days of discharge. Follow-up with cardiology within 1 week of discharge. Take-home medications as advised. Come back to the ED for worsening chest pain, shortness of breath, palpitations or lightheadedness. Discharge Disposition: HOME SELF-CARE
[2021-11-28 16:55] VITALS: BP 123/59; PULSE 80
[2021-11-28 17:37] LABS: Glucose,Whole Blood 354 mg/dL (70-110)
[2021-11-29] MEDS ORDERED: HEPARIN SODIUM,PORCINE 10,000 UNIT in SODIUM CHLORIDE 0.9% 1,000 ML IRRIGATION PRN (07:00)
[2021-11-29] MEDS ORDERED: HEPARIN SODIUM,PORCINE 2,500 UNIT in SODIUM CHLORIDE 0.9% 250 ML IRRIGATION PRN (07:00)
--- NOTE | 2021-11-30 13:49 | CDI ---
Documentation Clarification Form Date: 11/30/2021 01:47:00 PM From: Laurie Ni Admit Date: 11/27/2021 04:37:00 PM Patient Name: Josi Lainez Visit Number: [id number] Discharge Date: 11/28/2021 05:55:00 PM ATTENTION: The Clinical Documentation Specialists (CDI) and [facility] Coding Staff appreciate your assistance in clarifying documentation. Please respond to the clarification below the line at the bottom and electronically sign. The CDI & [facility] Coding staff will review the response and follow-up if needed. Please note: Queries are made part of the Legal Health Record. If you have any questions, please contact the author of this message via ITS. Dr. Massiel Cruz, Unspecified CKD is documented in the consult under history of presenting illness in the 11/27 PN. Additional clarification regarding the stage of CKD is requested. History/Risk Factors: HTN w heart and CKD, chronic systolic CHF, DM w CKD, CAD w unstable angina, chronic total occlusion of coronary artery, left BKA, stenosis of femoral graft Patients Historical BUN/CR/GFR -none available Clinical Indicators: Current BUN: 42, 24 CR: 1.34, 0.73 GFR: 41, 85 Please clarify the stage of the CKD, if known: [ ] CKD Stage 1 (GFR > 90) [ ] CKD Stage 2 (GFR 60-89) [ ] CKD Stage 3 (GFR 30-59) [ ] CKD Stage 3a (GFR 45-59) [ ] CKD Stage 3b (GFR 30-44) [ ] CKD Stage 4 (GFR 15-29) [ ] CKD Stage 5 (GFR <15) [ ] ESRD [ ] Other, please specify [ ] Unable to determine Error, patient does not have CKD, should be AKI MTDD
== END 2021-11-28 17:55 | disposition home or self-care (01) | DRG 287 ==
LOC: EC 12:19 → 6NMEDSUR 14:59 → OBSVTOIN 11-27 16:37
PROVIDERS: ADMIT Internal Medicine; ATTEND Internal Medicine
PROC: 4A023N7 Measurement of Cardiac Sampling and Pressure, Left Heart, Percutaneous Approach (ICD-10-PCS; principal; 2021-11-28 07:30)
PROC: B2111ZZ Fluoroscopy of Multiple Coronary Arteries using Low Osmolar Contrast (ICD-10-PCS; principal; 2021-11-28 07:30)
PROC: B2131ZZ Fluoroscopy of Multiple Coronary Artery Bypass Grafts using Low Osmolar Contrast (ICD-10-PCS; principal; 2021-11-28 07:30)
DX: I25.110 Atherosclerotic heart disease of native coronary artery with unstable angina pectoris (principal); N17.9 Acute kidney failure, unspecified; E87.2 Acidosis; T82.858A Stenosis of other vascular prosthetic devices, implants and grafts, initial encounter; I50.22 Chronic systolic (congestive) heart failure; I11.0 Hypertensive heart disease with heart failure; E11.22 Type 2 diabetes mellitus with diabetic chronic kidney disease; I25.82 Chronic total occlusion of coronary artery; Z89.512 Acquired absence of left leg below knee; Z28.310 Unvaccinated for COVID-19; I25.2 Old myocardial infarction; E66.9 Obesity, unspecified; Z68.32 Body mass index [BMI] 32.0-32.9, adult; Z79.84 Long term (current) use of oral hypoglycemic drugs; Z91.19 Patient's noncompliance with other medical treatment and regimen; Z95.1 Presence of aortocoronary bypass graft; Z95.5 Presence of coronary angioplasty implant and graft; Z88.5 Allergy status to narcotic agent; Z88.0 Allergy status to penicillin; Z88.8 Allergy status to other drugs, medicaments and biological substances; Z88.6 Allergy status to analgesic agent; Z91.041 Radiographic dye allergy status; Z82.49 Family history of ischemic heart disease and other diseases of the circulatory system
CPT/HCPCS: 36415; 71045; 71275; 74174; 78452; 80048; 80053; 80061; 80069; 83690; 83735; 84484; 85025; 85610; 85730; 93005; 93017; 93306; 93459; 93567; 96361; 96374; 96375; 99285

== ENCOUNTER 2021-12-13 13:27 | Emergency (ER) | payer MEDICARE ==
[2021-12-13] MEDS ORDERED: MECLIZINE 12.5 MG TAB PO STA (17:01)
[2021-12-13] MEDS ORDERED: SODIUM CHLORIDE 0.9% 1,000 ML IV STA (17:01)
[2021-12-13] MEDS ORDERED: ONDANSETRON 4 MG/2 ML VIAL IVP STA (17:01)
--- NOTE | 2021-12-13 17:47 | ED ---
Dizziness HPI - General Chief Complaint: Dizziness Stated Complaint: sob, nausea, dizzyness Time Seen by Provider: 12/13/21 16:50 Source: patient Mode of arrival: ambulatory Limitations: no limitations - History of Present Illness Initial Comments: Patient is a 66-year-old female history of diabetes and CAD presenting with chief complaint of dizziness. Patient states that starting yesterday she has been very dizzy when moving her head, this has resulted in nausea and vomiting as well. Patient does not take any nausea or motion sickness medicine at home. She denies any chest pain, admits to mild shortness of breath. No palpitations, weakness, numbness, tingling, vision or hearing changes, abdominal pain, diarrhea, hematochezia, melena, dysuria or hematuria, URI-like symptoms. - Related Data Home Medications Medication Instructions Recorded Confirmed metFORMIN HCL 500 mg PO BID 11/25/21 11/25/21 Previous Rx's Medication Instructions Recorded Acetaminophen Tab [Tylenol] 650 mg PO Q6HR PRN tab 11/27/21 Aspirin 81 mg PO DAILY #30 tab 11/27/21 Atorvastatin [Lipitor] 40 mg PO HS #30 tab 11/27/21 Metoprolol Succinate (ER) [Toprol 12.5 mg PO DAILY #15 tab 11/27/21 XL] lisinopriL [Zestril] 5 mg PO DAILY #30 tab 11/27/21 Meclizine [Antivert] 25 mg PO BID PRN #20 tab 12/13/21 Nirmatrelvir/Ritonavir [Paxlovid 1 unit PO BID 5 Days #1 pack 12/13/21 300-100 mg Pack (Eua)] Allergies Allergy/AdvReac Type Severity Reaction Status Date / Time Iodine and Iodide Containing AdvReac Rash/Hives Verified 12/13/21 14:08 Produc ketorolac [From Toradol] AdvReac Anaphylaxis Verified 12/13/21 14:08 Penicillins AdvReac Rash/Hives Verified 12/13/21 14:08 prednisone AdvReac racing Verified 12/13/21 14:08 heart, light headedness tramadol AdvReac Confusion Verified 12/13/21 14:08 Review of Systems ROS Statement: Those systems with pertinent positive or pertinent negative responses have been documented in the HPI. ROS Other: All systems not noted in ROS Statement are negative. 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 Last Myocardial Infarction Date:: unk History of Any Multi-Drug Resistant Organisms: None Reported Past Surgical History: Coronary Bypass/CABG, Heart Catheterization, Heart Catheterization With Stent Past Anesthesia/Blood Transfusion Reactions: No Reported Reaction Date of Last Stent Placement:: unk Past Psychological History: No Psychological Hx Reported Smoking Status: Never smoker Past Alcohol Use History: None Reported Past Drug Use History: None Reported General Exam Limitations: no limitations General appearance: alert, in no apparent distress Head exam: Present: atraumatic, normocephalic, normal inspection Eye exam: Present: normal appearance, EOMI. Absent: scleral icterus, periorbital swelling Neck exam: Present: normal inspection Respiratory exam: Present: normal lung sounds bilaterally. Absent: respiratory distress, wheezes, rales, rhonchi, stridor Cardiovascular Exam: Present: regular rate, normal rhythm, normal heart sounds. Absent: systolic murmur, diastolic murmur, rubs, gallop, clicks Neurological exam: Present: alert, oriented X3, CN II-XII intact Psychiatric exam: Present: normal affect, normal mood Skin exam: Present: warm, dry, intact, normal color. Absent: rash Course Vital Signs 12/13/21 12/13/21 12/13/21 14:05 19:47 22:00 Temperature 98.1 F 97.1 F L Pulse Rate 90 73 68 Respiratory 18 16 Rate Blood Pressure 185/99 163/92 136/85 O2 Sat by Pulse 100 94 L Oximetry 12/13/21 22:49 Temperature Pulse Rate 73 Respiratory Rate Blood Pressure 138/77 O2 Sat by Pulse 100 Oximetry Medical Decision Making - Medical Decision Making Patient is a 66-year-old female presenting with chief complaint of dizziness, nausea, vomiting. Patient states that starting last night she has been having dizziness when moving her head. On examination there are no focal neurological deficits, heart and lungs are clear to auscultation. CBC is unremarkable. CMP shows glucose of 146. Troponin is less than 0.012. EKG shows no acute changes. Chest x-ray shows no acute process. Patient did test positive for coronavirus. She reports improvement in her symptoms after meclizine. Educated patient on quarantine guidelines and supportive treatment. Follow-up with PCP. Report back to ER with any new or worsening symptoms. Discussed return parameters and answered all questions. Patient conveyed verbal understanding and agreed to the plan. I discussed this case in detail with my attending Dr. Preston. - Lab Data Result diagrams: 12/13/21 20:19 12/13/21 20:19 Lab Results 12/13/21 12/13/21 12/13/21 Range/Units 20:19 20:19 20:19 WBC 7.7 (3.8-10.6) k/uL RBC 4.79 (3.80-5.40) m/uL Hgb 13.5 (11.4-16.0) gm/dL Hct 40.9 (34.0-46.0) % MCV 85.5 (80.0-100.0) fL MCH 28.1 (25.0-35.0) pg MCHC 32.9 (31.0-37.0) g/dL RDW 13.3 (11.5-15.5) % Plt Count 163 D (150-450) k/uL MPV 10.5 Neutrophils % 67 % Lymphocytes % 23 % Monocytes % 5 % Eosinophils % 1 % Basophils % 1 % Neutrophils # 5.2 (1.3-7.7) k/uL Lymphocytes # 1.8 (1.0-4.8) k/uL Monocytes # 0.4 (0-1.0) k/uL Eosinophils # 0.1 (0-0.7) k/uL Basophils # 0.1 (0-0.2) k/uL Sodium 142 (137-145) mmol/L Potassium 4.5 (3.5-5.1) mmol/L Chloride 106 (98-107) mmol/L Carbon Dioxide 25 (22-30) mmol/L Anion Gap 11 mmol/L BUN 19 H (7-17) mg/dL Creatinine 0.78 (0.52-1.04) mg/dL Est GFR (CKD-EPI)AfAm >90 (>60 ml/min/1.73 sqM) Est GFR (CKD-EPI)NonAf 79 (>60 ml/min/1.73 sqM) Glucose 146 H (74-99) mg/dL Plasma Lactic Acid Jr 1.4 (0.7-2.0) mmol/L Calcium 9.2 (8.4-10.2) mg/dL Total Bilirubin 0.8 (0.2-1.3) mg/dL AST 20 (14-36) U/L ALT 15 (4-34) U/L Alkaline Phosphatase 109 (38-126) U/L Troponin I (0.000-0.034) ng/mL Total Protein 7.0 (6.3-8.2) g/dL Albumin 4.2 (3.5-5.0) g/dL Coronavirus (PCR) (Not Detectd) 12/13/21 12/13/21 Range/Units 20:19 20:19 WBC (3.8-10.6) k/uL RBC (3.80-5.40) m/uL Hgb (11.4-16.0) gm/dL Hct (34.0-46.0) % MCV (80.0-100.0) fL MCH (25.0-35.0) pg MCHC (31.0-37.0) g/dL RDW (11.5-15.5) % Plt Count (150-450) k/uL MPV Neutrophils % % Lymphocytes % % Monocytes % % Eosinophils % % Basophils % % Neutrophils # (1.3-7.7) k/uL Lymphocytes # (1.0-4.8) k/uL Monocytes # (0-1.0) k/uL Eosinophils # (0-0.7) k/uL Basophils # (0-0.2) k/uL Sodium (137-145) mmol/L Potassium (3.5-5.1) mmol/L Chloride (98-107) mmol/L Carbon Dioxide (22-30) mmol/L Anion Gap mmol/L BUN (7-17) mg/dL Creatinine (0.52-1.04) mg/dL Est GFR (CKD-EPI)AfAm (>60 ml/min/1.73 sqM) Est GFR (CKD-EPI)NonAf (>60 ml/min/1.73 sqM) Glucose (74-99) mg/dL Plasma Lactic Acid Jr (0.7-2.0) mmol/L Calcium (8.4-10.2) mg/dL Total Bilirubin (0.2-1.3) mg/dL AST (14-36) U/L ALT (4-34) U/L Alkaline Phosphatase (38-126) U/L Troponin I <0.012 (0.000-0.034) ng/mL Total Protein (6.3-8.2) g/dL Albumin (3.5-5.0) g/dL Coronavirus (PCR) Detected A (Not Detectd) Disposition Clinical Impression: COVID Disposition: HOME SELF-CARE Condition: Good Instructions (If sedation given, give patient instructions): Dizziness (ED), COVID-19 (Coronavirus Disease 2019) (ED) Additional Instructions: Quarantine at home for 5 days, if you feel better after these 5 days he may then glum public wearing a mask at all times for an additional 5 days. Tender quarantine, you must be symptomatic fever free. Take Motrin and Tylenol as needed for fever and pain control. Take medication as prescribed. While taking Paxlovid do not take atorvastatin, you may resume taking atorvastatin 3 days after completion of the antiviral medication. Report back to ER with any new or worsening symptoms. Follow-up with PCP. Prescriptions: Meclizine [Antivert] 25 mg PO BID PRN #20 tab PRN Reason: Vertigo Nirmatrelvir/Ritonavir [Paxlovid 300-100 mg Pack (Eua)] 1 unit PO BID 5 Days #1 pack Is patient prescribed a controlled substance at d/c from ED?: No Referrals: None,Stated [Primary Care Provider] - 1-2 days Time of Disposition: 22:23
--- NOTE | 2021-12-13 18:03 | XR ---
EXAMINATION TYPE: XR chest 2V DATE OF EXAM: 12/13/2021 COMPARISON: 11/25/2021 HISTORY: Dizziness TECHNIQUE: 2 views FINDINGS: There is no heart failure nor confluent pneumonic infiltrate. Costophrenic angles are clear there are sternal wires. There is spurring in the thoracic spine. Bony thorax is intact. IMPRESSION: No active cardiopulmonary disease. Inspiration decreased compared to old exam.
[2021-12-13 19:54] VITALS: RESP 16; TEMP 97.1
[2021-12-13 20:42] LABS: Basophils # (A) 0.1 k/uL (0-0.2); Basophils % (A) 1 %; Eosinophils # (A) 0.1 k/uL (0-0.7); Eosinophils % (A) 1 %; HCT 40.9 % (34.0-46.0); HGB 13.5 gm/dL (11.4-16.0); Lymphocytes # (A) 1.8 k/uL (1.0-4.8); Lymphocytes % (A) 23 %; MCH 28.1 pg (25.0-35.0); MCHC 32.9 g/dL (31.0-37.0); MCV 85.5 fL (80.0-100.0); Mean Platelet Volume 10.5; Monocytes # (A) 0.4 k/uL (0-1.0); Monocytes % (A) 5 %; Neutrophils # (A) 5.2 k/uL (1.3-7.7); Neutrophils % (A) 67 %; RBC 4.79 m/uL (3.80-5.40); RDW 13.3 % (11.5-15.5); WBC 7.7 k/uL (3.8-10.6)
[2021-12-13 20:49] LABS: Platelet Count 163 k/uL (150-450)
[2021-12-13 20:56] LABS: ALT 15 U/L (4-34); AST 20 U/L (14-36); African American GFR (CKD) >90 (>60 ml/min/1.73 sqM); Albumin 4.2 g/dL (3.5-5.0); Alkaline Phosphatase 109 U/L (38-126); Anion Gap 11 mmol/L; Blood Urea Nitrogen 19 mg/dL (7-17); Calcium 9.2 mg/dL (8.4-10.2); Carbon Dioxide 25 mmol/L (22-30); Chloride 106 mmol/L (98-107); Glucose 146 mg/dL (74-99); Non-African American GFR(CKD) 79 (>60 ml/min/1.73 sqM); Potassium 4.5 mmol/L (3.5-5.1); Sodium 142 mmol/L (137-145); Total Bilirubin 0.8 mg/dL (0.2-1.3)
[2021-12-13 22:50] VITALS: BP 138/77; PULSE 73
== END 2021-12-13 22:50 | disposition home or self-care (01) ==
LOC: EC 13:27
DX: U07.1 COVID-19 (principal); R42 Dizziness and giddiness; E11.9 Type 2 diabetes mellitus without complications; I25.2 Old myocardial infarction; Z91.041 Radiographic dye allergy status; Z88.6 Allergy status to analgesic agent; Z88.0 Allergy status to penicillin; Z88.8 Allergy status to other drugs, medicaments and biological substances; Z79.82 Long term (current) use of aspirin; Z79.899 Other long term (current) drug therapy
CPT/HCPCS: 36415; 71046; 80053; 83605; 84484; 85025; 87635; 93005; 96361; 96374; 99285

== ENCOUNTER 2022-08-24 14:45 | Inpatient (IN) | payer MEDICARE, OTHER ==
[2022-08-24] MEDS ORDERED: MORPHINE SULFATE 4 MG/ML SYRINGE IM STA (15:18)
--- NOTE | 2022-08-24 15:26 | ED ---
General Adult HPI - General Chief complaint: Fall Stated complaint: Fall Time Seen by Provider: 08/24/22 14:59 Source: patient, EMS Mode of arrival: EMS - History of Present Illness Initial comments: Dictation was produced using [employer] dictation software. please excuse any grammatical, word or spelling errors. Chief Complaint: 67-year-old feel presents with right ankle pain History of Present Illness: 67-year-old female she presents with right ankle pain. She fell yesterday. She has a prosthetic left leg. She was ambulating when her prosthesis fell out. Construct a fall. States that she fell on outstretched hand and on the way down and she hurt her ankle. Patient states that pain is much worse today prompt her to come to the ER. The ROS documented in this emergency department record has been reviewed and confirmed by me. Those systems with pertinent positive or negative responses have been documented in the HPI. All other systems are other negative and/or noncontributory. - Related Data Home Medications Medication Instructions Recorded Confirmed No Known Home Medications 08/24/22 08/24/22 Allergies Allergy/AdvReac Type Severity Reaction Status Date / Time Iodine and Iodide Containing AdvReac Rash/Hives Verified 08/24/22 16:11 Produc ketorolac [From Toradol] AdvReac Anaphylaxis Verified 08/24/22 16:11 Penicillins AdvReac Rash/Hives Verified 08/24/22 16:11 prednisone AdvReac racing Verified 08/24/22 16:11 heart, light headedness tramadol AdvReac Confusion Verified 08/24/22 16:11 Review of Systems ROS Statement: Those systems with pertinent positive or pertinent negative responses have been documented in the HPI. ROS Other: All systems not noted in ROS Statement are negative. 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 Last Myocardial Infarction Date:: unk History of Any Multi-Drug Resistant Organisms: None Reported Past Surgical History: Coronary Bypass/CABG, Heart Catheterization, Heart Catheterization With Stent Past Anesthesia/Blood Transfusion Reactions: No Reported Reaction Date of Last Stent Placement:: unk Past Psychological History: No Psychological Hx Reported Smoking Status: Never smoker Past Alcohol Use History: None Reported Past Drug Use History: None Reported General Exam - General Exam Comments Initial Comments: PHYSICAL EXAM: General Impression: Alert and oriented x3, acute distress secondary to pain HEENT: Normocephalic atraumatic, extra-ocular movements intact, pupils equal and reactive to light bilaterally, mucous membranes moist. Cardiovascular: Heart regular rate and rhythm Chest: Able to complete full sentences, no retractions, no tachypnea Musculoskeletal: no peripheral edema Motor: no focal deficits noted Right lower extremity: No gross deformity, palpatory tenderness to the lower tibia Neurological: CN II-XII grossly intact, no focal motor or sensory deficits noted Skin: Intact with no visualized rashes Psych: Normal affect and mood Course Vital Signs 08/24/22 08/24/22 14:47 15:35 Temperature 98.4 F Pulse Rate 85 71 Respiratory 19 18 Rate Blood Pressure 160/95 134/67 O2 Sat by Pulse 98 98 Oximetry Procedures - Orthopedic Splinting/Casting Injury #1 Side: right Lower Extremity Immobilizer: posterior splint Other Orthopedic Equipment: crutches Medical Decision Making - Medical Decision Making Was pt. sent in by a medical professional or institution (YESICA Henson, DRYING OVEN ATTENDANT, urgent care, hospital, or assisted...) When possible be specific @ -No Did you speak to anyone other than the patient for history (EMS, parent, family, police, friend...)? What history was obtained from this source @ -No Did you review nursing and triage notes (agree or disagree)? Why? @ -I reviewed and agree with nursing and triage notes Were old charts reviewed (outside hosp., previous admission, EMS record, old EKG, old radiological studies, urgent care reports/EKG's, assisted records)? Report findings @ -No old charts were reviewed Differential Diagnosis (chest pain, altered mental status, abdominal pain women, abdominal pain men, vaginal bleeding, musculoskeletal, weakness, fever, dyspnea, syncope, headache, dizziness, GI bleed, back pain, seizure, CVA, palpatations, mental health)? @ -not applicable EKG interpreted by me (3pts min.). @ -None done X-rays interpreted by me (1pt min.). @ -Left ankle x-ray shows bimalleolar ankle fracture CT interpreted by me (1pt min.). @ -None done U/S interpreted by me (1pt. min.). @ -None done What testing was considered but not performed or refused? (CT, X-rays, U/S, labs)? Why? @ -None What meds were considered but not given or refused? Why? @ -None Did you discuss the management of the patient with other professionals (professionals i.e. , PA, DRYING OVEN ATTENDANT, lab, RT, psych nurse, neonatal social worker, divorce lawyer, teacher, employment officer, manager case management)? Give summary @ -Imaging and clinical presentation is discussed with orthopedic YESICA villafana who requested patient be admitted to medicine. Case discussed with Dr. Ahmadi was agreeable Was smoking cessation discussed for >3mins.? @ -No Was critical care preformed (if so, how long)? @ -No Were there social determinants of health that impacted care today? How? (Homelessness, low income, unemployed, alcoholism, drug addiction, transportation, low edu. Level, literacy, decrease access to med. care, usp, rehab)? @ -No Was there de-escalation of care discussed even if they declined (Discuss DNR or withdrawal of care, Hospice)? DNR status @ -No What co-morbidities impacted this encounter? (DM, HTN, Smoking, COPD, CAD, Cancer, CVA, ARF, Chemo, Hep., AIDS, mental health diagnosis, sleep apnea, morbid obesity)? @ -None Was patient admitted / discharged? Hospital course, mention meds given and route, prescriptions, significant lab abnormalities, going to OR and other per tinent info. @ -67-year-old female says to the ER for bimalleolar fracture suffered yesterday. Patient will be admitted to medicine with orthopedic consult. Pending preoperative workup Undiagnosed new problem with uncertain prognosis? @ -No Drug Therapy requiring intensive monitoring for toxicity (Heparin, Nitro, Insulin, Cardizem)? @ -No Were any procedures done? @ -No Diagnosis/symptom? Acute, or Chronic, or Acute on Chronic? Uncomplicated (without systemic symptoms) or Complicated (systemic symptoms)? @ -. Right bimalleolar fracture Side effects of treatment? @ -No Exacerbation, Progression, or Severe Exacerbation? @ -No Poses a threat to life or bodily function? How? (Chest pain, [place], [place], pneumonia, PE, COPD, DKA, ARF, appy, cholecystitis, CVA, Diverticulitis, Homicidal, Suicidal, threat to staff... and all critical care pts) @ -yes Disposition Clinical Impression: Bimalleolar ankle fracture Disposition: ADMITTED IP TO THIS HOSP Condition: Fair Referrals: None,Stated [Primary Care Provider] - 1-2 days Decision Time: 16:45
--- NOTE | 2022-08-24 15:40 | XR ---
Right ankle. HISTORY: Pain. COMPARISON: None. TECHNIQUE: 3 views the right ankle were obtained. FINDINGS: There is chronic deformity of the distal right fibula but there are acute fractures of both the media l and lateral malleoli consistent with a bimalleolar fracture. The ankle mortise is intact. There are moderate degenerative changes of the midfoot articulations are fairly of the talonavicular joint. IMPRESSION: 1. Acute bimalleolar fracture. 2. Evidence for remote trauma to the left fibula as well. 3. Arthritic changes as described above.
[2022-08-24] MEDS ORDERED: NALOXONE 0.4 MG/ML 1 ML VIAL IV PRN (16:23)
[2022-08-24] MEDS ORDERED: ONDANSETRON 4 MG/2 ML VIAL IVP PRN (16:23)
--- NOTE | 2022-08-24 16:50 | P.HPOR ---
History of Present Illness H&P Date: 08/24/22 Chief Complaint: Right ankle fracture Patient is a 67-year-old female who presented to [facility] for evaluation of a right ankle injury. Apparently yesterday she was walking when her prosthetic on the left side fell off causing her to fall onto her right a nkle. Patient had immediate pain but was able to tolerate it through the day. Today she stated that the pain became worse and came in for evaluation of the ankle. Upon arrival to the hospital, imaging test were done, they do demonstrate a displaced right lateral malleolar and medial malleolus fracture. I was contacted by the emergency room staff regarding the patient. Initial attempt was to splint and follow-up in the outpatient setting. 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 They felt that it would be very difficult for returning to her house in follow- up so decision was made to keep patient in hospital with plan for surgical intervention. Patient was evaluated in the emergency room, her friend was present at bedside. A posterior splint was applied to the emergency room staff. Patient notes more discomfort throughout the ankle. She has a small abrasion over the anterior aspect of the right knee. She is denying any hip pain at this time. She denies any bilateral upper extremity pain. She denies hitting her head during the fall. Denies any loss of bowel or bladder function, she denies any paresthesias right lower extremity. Patient states that she did break this ankle when she was younger, she never underwent surgery. Medical history, she admits to previous CABG 2, and also known diabetic. 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 Last Myocardial Infarction Date:: unk History of Any Multi-Drug Resistant Organisms: None Reported Past Surgical History: Coronary Bypass/CABG, Heart Catheterization, Heart Catheterization With Stent Past Anesthesia/Blood Transfusion Reactions: No Reported Reaction Date of Last Stent Placement:: unk Past Psychological History: No Psychological Hx Reported Smoking Status: Never smoker Past Alcohol Use History: None Reported Past Drug Use History: None Reported Medications and Allergies Home Medications Medication Instructions Recorded Confirmed Type No Known Home Medications 08/24/22 08/24/22 History Allergies Allergy/AdvReac Type Severity Reaction Status Date / Time Iodine and Iodide Containing AdvReac Rash/Hives Verified 08/24/22 16:11 Produc ketorolac [From Toradol] AdvReac Anaphylaxis Verified 08/24/22 16:11 Penicillins AdvReac Rash/Hives Verified 08/24/22 16:11 prednisone AdvReac racing Verified 08/24/22 16:11 heart, light headedness tramadol AdvReac Confusion Verified 08/24/22 16:11 Physical Examination Right lower extremity: Small abrasion noted over the anterior aspect of the knee, no significant erythema, skin lower, drainage, fluctuance appreciated No effusion is present on the knee, flexion and extension are intact, no significant tenderness to the medial and lateral joint line Posterior splint is in good position from mid calf to the foot and ankle, patient is missing multiple toes. There are no open lesions or sores or areas of erythema appreciated in that region Patient's sensation to light touch is intact both proximal and distal to the splint Skin is warm to touch Logroll maneuver reproduces no pain in the groin Results - Diagnostic results Ankle/Foot x-ray: report reviewed, image reviewed (Images and reports of the right ankle were reviewed. Images demonstrate displaced lateral malleolar and medial malleolar fracture. The mortise joint remains intact and significant widening) Assessment and Plan Assessment: Displaced right ankle bimalleolar fracture Status post fall from standing Type 1 Diabetes Other medical comorbidities Plan: I was able to discuss the case, this including both physical exam findings and imaging studies and my attending Dr. Ambriz. Due to the difficulty patient would have with being discharged with plan for follow-up, patient will be admitted under orthopedic care with plan for surgical intervention. Risk and benefits of the procedure were discussed, this including infection, blood loss, neurovascular injury, development of blood clots, healing of soft tissues, and adequate healing of bone with possible need for further surgery, mobilization status, etc. Patient is a good understanding would like to proceed with surgical intervention. Surgery scheduled tentatively for 08/25/2022, nothing by mouth after midnight Obtain consent prior to procedure Nonweightbearing right lower extremity Ice and elevate the extremity often, do not remove splint Medical clearance and recommendations Cardiology clearance based on previous cardiac history GI and DVT prophylaxis, we will begin subcu medication after surgery Further recommendations to follow Time with Patient: Less than 30
[2022-08-24 17:14] LABS: Basophils % (A) 0 %; Eosinophils # (A) 0.1 k/uL (0-0.7); Eosinophils % (A) 2 %; HCT 41.8 % (34.0-46.0); HGB 13.9 gm/dL (11.4-16.0); Lymphocytes # (A) 1.5 k/uL (1.0-4.8); Lymphocytes % (A) 18 %; MCH 27.7 pg (25.0-35.0); MCHC 33.3 g/dL (31.0-37.0); MCV 83.2 fL (80.0-100.0); Mean Platelet Volume 10.1; Monocytes # (A) 0.4 k/uL (0-1.0); Monocytes % (A) 4 %; Neutrophils # (A) 6.1 k/uL (1.3-7.7); Neutrophils % (A) 74 %; Platelet Count 121 k/uL (150-450); RBC 5.02 m/uL (3.80-5.40); RDW 14.1 % (11.5-15.5); WBC 8.2 k/uL (3.8-10.6)
[2022-08-24 17:25] LABS: African American GFR (CKD) >90 (>60 ml/min/1.73 sqM); Anion Gap 10 mmol/L; Blood Urea Nitrogen 20 mg/dL (7-17); Calcium 8.9 mg/dL (8.4-10.2); Carbon Dioxide 26 mmol/L (22-30); Chloride 104 mmol/L (98-107); Glucose 149 mg/dL (74-99); Non-African American GFR(CKD) 85 (>60 ml/min/1.73 sqM); Potassium 4.6 mmol/L (3.5-5.1); Sodium 140 mmol/L (137-145)
[2022-08-24 17:29] LABS: Partial Thromboplastin Time 23.9 sec (22.0-30.0); Prothrombin Time 10.9 sec (9.0-12.0)
--- NOTE | 2022-08-24 17:33 | XR ---
EXAMINATION TYPE: XR chest 2V DATE OF EXAM: 08/24/2022 5:30 PM COMPARISON: Chest radiographs from 12/13/2021. TECHNIQUE: XR chest 2V Frontal and lateral views of the chest. CLINICAL INDICATION:Female, 67 years old with history of preop; FINDINGS: Lungs/Pleura: There is no evidence of pleural effusion, focal consolidation, or pneumothorax. Pulmonary vascularity: Unremarkable. Heart/mediastinum: Cardiomediastinal silhouette is enlarged and stable. Musculoskeletal: No acute osseous pathology. Right upper quadrant cholecystectomy clips. IMPRESSION: No acute cardiopulmonary disease/process.
--- NOTE | 2022-08-24 18:14 | P.HPIM ---
History of Present Illness H&P Date: 08/24/22 Chief Complaint: ankle fracture 67-year-old woman with medical history of hypertension, hyperlipidemia, diabetes type 2, left BKA, CAD status post CABG and PCI presented for evaluation of ankle pain. Patient says that she was walking across the street when her prosthetic fell off and she fell and broke her ankle. Patient was then brought into the hospital for further evaluation. Regarding her Past medical history, she reports having had 2 CABGs as well as to PCI's, most recent CABG was 9-10 years ago. Patient does not take aspirin at home. Her only medications are Tylenol when necessary as well as sliding scale insulin. She has not been to a doctor in many years and does not know what her hemoglobin A1c is. However, in terms of exercise capacity, she reports that she has hiked [employer] recently and is capable of walking many blocks without chest pain or shortness of breath. Her sister who is at bedside reports the patient was able to mow her lawn within this week using a push mower and had no issues with chest pain or shortness of breath. Therefore her METs estimation is greater than 4. She denies fevers, chills, nausea, vomiting, chest pain, palpitations, syncope, presyncope, cough, dyspnea, abdominal pain, constipation, diarrhea, dysuria. In the emergency room, patient was afebrile, 160/95, heart rate 85, 98% on room air. CBC is remarkable for low platelets at 121. Basic metabolic panel shows BUN of 20, creatinine of 0.73. Coags are unremarkable. Ankle x-ray shows acute bimalleolar fracture. Chest x-ray shows normal-sized heart, no parenchymal abnormalities. Case was discussed with the emergency room provider and decision was made to admit the patient to medicine with orthopedic surgery's consultation. Case was then discussed with orthopedic surgery service who plans to take her to the operating room tomorrow for ORIF, and will require preoperative clearance. All Systems reviewed and pertinent positives and negatives noted in HPI, all other symptoms are negative Gen: in no apparent distress, resting comfortably in bed Eyes: PERRL, no scleral injection or icterus HENT: normocephalic, atraumatic, good hearing acuity, moist mucous membranes Neck: no tracheal deviation, full range of motion Resp: good air exchange, breathing comfortably with no accessory muscle use, no tactile fremitus CVS: good distal perfusion x 4, no pitting edema in the right leg GI: soft, NTTP, ND, no hepatosplenomegaly : no suprapubic tenderness, no CVAT, fuller catheter not present MSK: no clubbing, no cyanosis, no noted contractures of extremities, left BKA Skin: no noted rashes, petechiae; temperature of skin is appropriate Neuro: moving all extremities without signs of weakness, CN II-XII intact Psych: cooperative, euthymic mood, insight and judgment intact Labs and imaging as above Assessment: Bimalleolar fracture of the ankle, right History of left BKA Preoperative clearance Diabetes type 2 Hypertension Hyperlipidemia CAD status post CABG Plan: Vital signs reviewed and noted in the HPI Lab work reviewed and noted in the HPI EKG and CXR are personally interpreted and noted in the HPI Ankle x-ray note was reviewed and summarized above in HPI Case was discussed with the Emergency Room provider and decision was made to admit the patient for ankle fracture NSQIP risk calculator estimates a 0.5% chance of MACE with this procedure for this patient. Given her history of CAD with multiple CABG/PCI, she will need a preoperative EKG. To better assess risk of post-surgical infection, an A1c will be ordered as well. Okay to proceed to surgery following the tests above as mentioned. 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 Last Myocardial Infarction Date:: unk History of Any Multi-Drug Resistant Organisms: None Reported Past Surgical History: Coronary Bypass/CABG, Heart Catheterization, Heart Catheterization With Stent Past Anesthesia/Blood Transfusion Reactions: No Reported Reaction Date of Last Stent Placement:: unk Past Psychological History: No Psychological Hx Reported Smoking Status: Never smoker Past Alcohol Use History: None Reported Past Drug Use History: None Reported Medications and Allergies Home Medications Medication Instructions Recorded Confirmed Type No Known Home Medications 08/24/22 08/24/22 History Allergies Allergy/AdvReac Type Severity Reaction Status Date / Time Iodine and Iodide Containing AdvReac Rash/Hives Verified 08/24/22 16:11 Produc ketorolac [From Toradol] AdvReac Anaphylaxis Verified 08/24/22 16:11 Penicillins AdvReac Rash/Hives Verified 08/24/22 16:11 prednisone AdvReac racing Verified 08/24/22 16:11 heart, light headedness tramadol AdvReac Confusion Verified 08/24/22 16:11 Physical Exam Osteopathic Statement: *. No significant issues noted on an osteopathic struc tural exam other than those noted in the History and Physical/Consult. Vitals: Vital Signs Temp Pulse Resp BP Pulse Ox 08/24/22 15:35 71 18 134/67 98 08/24/22 14:47 98.4 F 85 19 160/95 98 Intake and Output 08/24/22 08/24/22 08/24/22 06:59 14:59 22:59 Other: Weight 76.204 kg Results CBC & Chem 7: 08/24/22 16:53 08/24/22 16:53 Labs: Abnormal Lab Results - Last 24 Hours (Table) 08/24/22 08/24/22 Range/Units 16:53 16:53 Plt Count 121 L (150-450) k/uL BUN 20 H (7-17) mg/dL Glucose 149 H (74-99) mg/dL
[2022-08-24] MEDS: oxyCODONE-APAP 5-325MG 1 EACH TAB PO PRN ×2 (18:33→23:49)
[2022-08-24] MEDS: ATORVASTATIN 80 MG TAB PO SCH (20:24)
--- NOTE | 2022-08-24 23:31 | CT ---
EXAMINATION TYPE: CT ankle RT wo con CT DLP: 515.4 mGycm, Automated exposure control for dose reduction was used. DATE OF EXAM: 08/24/2022 10:17 PM COMPARISON: Extremity radiograph same day. CLINICAL INDICATION:Female, 67 years old with history of Fracture, Fx TECHNIQUE: Axial images were obtained of the right ankle . Additional coronal and sagittal reformatt ed images and soft tissue and bone window were obtained for review. 3-D reconstruction was created on a separate workstation. Contrast used: None Oral contrast used: None FINDINGS: Acute fracture of the medial malleolus the lateral malleolus and the posterior tibial plafo nd. No additional fractures are visualized. There is a joint effusion present. Mild displacement of t he fragments. There is multifocal osteoarthrosis changes with osteophyte formation and joint space na rrowing. Atherosclerosis of the arterial vasculature. Multiple fragments densities of bone are seen w ithin the joint space itself. Series 202 image 41. IMPRESSION: 1. Acute fracture of the distal fibula, medial malleolus and posterior tibial plafond and with mild displacement of each fragment. 2. There are joint bodies within the ankle joint.
[2022-08-25] MEDS ORDERED: MORPHINE SULFATE 2 MG/ML SYRINGE IVP STA (00:38)
[2022-08-25] MEDS: oxyCODONE-APAP 5-325MG 1 EACH TAB PO PRN (04:51)
[2022-08-25 06:02] LABS: Glucose,Whole Blood 140 mg/dL (70-110)
[2022-08-25] MEDS: INSULIN ASPART (NovoLOG) 100 UNIT/ML VIAL SQ SCH ×3 (06:08→17:33)
[2022-08-25 07:57] LABS: Basophils % (A) 0 %; Eosinophils # (A) 0.2 k/uL (0-0.7); Eosinophils % (A) 3 %; HCT 39.8 % (34.0-46.0); HGB 12.7 gm/dL (11.4-16.0); Lymphocytes # (A) 1.6 k/uL (1.0-4.8); Lymphocytes % (A) 27 %; MCH 27.3 pg (25.0-35.0); MCV 85.4 fL (80.0-100.0); Mean Platelet Volume 10.7; Monocytes # (A) 0.3 k/uL (0-1.0); Monocytes % (A) 6 %; Neutrophils # (A) 3.7 k/uL (1.3-7.7); Neutrophils % (A) 61 %; Platelet Count 122 k/uL (150-450); RBC 4.66 m/uL (3.80-5.40); RDW 14.1 % (11.5-15.5)
[2022-08-25 08:16] LABS: African American GFR (CKD) >90 (>60 ml/min/1.73 sqM); Anion Gap 6 mmol/L; Blood Urea Nitrogen 20 mg/dL (7-17); Calcium 8.4 mg/dL (8.4-10.2); Carbon Dioxide 27 mmol/L (22-30); Chloride 105 mmol/L (98-107); Glucose 134 mg/dL (74-99); Non-African American GFR(CKD) 81 (>60 ml/min/1.73 sqM); Potassium 4.2 mmol/L (3.5-5.1); Sodium 138 mmol/L (137-145)
--- NOTE | 2022-08-25 09:46 | P.PN ---
Progress Note - Text Progress Note Date: 08/25/22 Orthopedic Surgery Risk Review Josi Lainez is a 67 yo female presenting for evaluation of sudden onset right ankle pain, inability to ambulate after fall and twisting injury at home. It was my pleasure to have seen and examined Josi Lainez. In our visit today we have had a chance to go over subjective complaints, physical examination findings and treatments including the natural course history without intervention and various interventional options. Her imaging demonstrates bimalleolar ankle fracture. On physical exam, Josi Lainez demonstrates pain with motion of RLE and ankle, which is NV intact at this time. I have explained to the patient that this fracture needs stabilization. Based on the patients imaging, physical exam, and the rapid progression and disabling nature of her symptoms, at this time I recommend surgery in the form or a: ORIF right ankle I discussed the risk and benefits of this procedure at length with Josi Lainez. Questions were invited and answered, and the patient wishes to proceed as outlined below. Currently, I am recommendin. ORIF right ankle 2. Review of surgical risks and benefits as well as an educational packet on the proposed surgical procedure. Risks: All surgical procedures come with inherent risks, including those related to positioning, anesthesia, intraoperative findings, and postoperative complications. It is important to understand that surgery does not come with any guarantee of a successful outcome as complications and adverse events are always possible. The patient was given a handout discussing the surgical procedure and risks associated with the intervention, both of which were discussed with the patient. These risks include but are not limited to the following: - Experiencing same, different or even worse symptoms compared to before surgery. - Requiring further surgery or other forms of treatment presently or at some time in the future . - On an extreme but fortunately relatively rare basis severe complication such as blindness, stroke, heart attack, temporary and/or permanent nerve injury, paralysis, coma, or may occur, sometimes without known explanation. - Surgical complications may include but are not limited to risk of infection, fluid accumulation in the surgical dissection site, including a seroma or hematoma, that requires additional surgery, wound drainage, bleeding, new numbness or weakness, vision changes/loss, spinal fluid leakage, non-healing and/or infected incision, headaches, difficulty or inability to swallow, hoarseness, hemopneumothorax, pneumothorax, injury to nerves, spinal cord, blood vessels, lymphatics or other vital organs (i.e., bowel injury, injury to the great vessels); heterotopic bone formation; complications related to the hardware such as screws, rods, including misplaced hardware, device failure, hardware fracture/breakage, or hardware loosening; retained surgical in strumentations or devices and the need for further surgery. - Medical risks of the planned surgery include but are not limited to generalized Infections to the whole body or local areas outside of the surgical site (sepsis), heart attack, bleeding, anaphylaxis, meningitis, seizure, epilepsy, hearing loss, burn morley, laceration of the head or other areas of the body, bruising, hypersensitivity of the skin, bladder over distension; allergic reaction; shoulder injury related to positioning; fat, blood and air clots to other areas of the body like heart, lungs, brain; failure of internal organs such as lungs, kidneys, liver and excessive bleeding. If blood transfusions are necessary, note that transfusions may cause intolerance reactions such as anaphylaxis or other complex reactions. Despite best efforts, the results of surgery might not heal in terms of bone, soft tissues such as skin, fascia, ligaments, and joints. [facility] has [facility] with single and overlapping rooms running daily. They currently function under the required guidelines as produced by the Senate Finance Committee with regards to the overlapping rooms and will continue to comply with changes to this policy as they occur. The requirements include and are complied with as follows: (1) the critical portions of the overlapping rooms will not occur at the same time, (2) the attending physician will be physically present during the critical portions of the procedure and immediately available during the entire case, and (3) a back-up attending is designated should the primary attending not be immediately available. The patient has had a chance to review all the listed information, has been given print outs detailing this information, and has had all his/her questions answered to their satisfaction. It was my pleasure to have seen and examined Josi Lainez. In our visit today we have had a chance to go over my understanding of our patient's current condition, the natural course history without intervention and various interventional options. Questions were invited and answered, and the patient wishes to proceed as outlined above. I have seen and examined the patient for 25 minutes and we have spent more than 50% of the time in repeat and detailed counseling about the patient's condition, its natural course history with out and as much as can be predicted with surgery and re-review of various surgical treatment options. In conclusion, Josi Lainez requested we proceed with the above suggested surgery and are willing to accept risks and limitations of the suggested surgery as nature of the disease process and our best attempts at treatment for the condition. Thank you again for allowing us to be part of your patient's care. Please don't hesitate to contact me if you have any further questions. Signed and authenticated by: Triston Puckett [facility] [address] [facility], [address] [address]
[2022-08-25] MEDS ORDERED: fentaNYL (PF) 50 MCG/ML 2 ML AMP ONE (09:53)
[2022-08-25] MEDS ORDERED: GLYCOPYRROLATE 0.2 MG/ML 2 ML VIAL ONE (09:53)
[2022-08-25] MEDS ORDERED: SUCCINYLCHOLINE CHLORIDE 200 MG/10 ML VIAL IV ONE (09:53)
[2022-08-25] MEDS ORDERED: NEOSTIGMINE 1 MG/ML 10 ML VIAL ONE (09:53)
[2022-08-25] MEDS ORDERED: PROPOFOL 10 MG/ML 20 ML VIAL IV ONE (09:53)
[2022-08-25] MEDS ORDERED: ROCURONIUM 10 MG/ML (5 ML VIAL) IV ONE (09:53)
[2022-08-25] MEDS ORDERED: LIDOCAINE 2% INJ 20 MG/ML (2 ML VIAL) ONE (09:53)
[2022-08-25] MEDS ORDERED: LACTATED RINGERS 1,000 ML IV ONE (09:53)
[2022-08-25] MEDS ORDERED: MIDAZOLAM 2 MG/2 ML VIAL ONE (09:53)
[2022-08-25] MEDS ORDERED: ePHEDrine 50 MG/ML 1 ML VIAL ONE (09:53)
[2022-08-25] MEDS ORDERED: HYDROmorphone (PF) 1 MG/ML ONE (09:53)
[2022-08-25] MEDS ORDERED: SODIUM CHLORIDE 0.9% 100 ML with ceFAZolin 2 GM IV ONE ×2 (10:15)
[2022-08-25] MEDS ORDERED: HYDROmorphone 0.5 MG/0.5 ML SYRINGE IVP PRN (11:20)
[2022-08-25] MEDS ORDERED: MAGNESIUM HYDROXIDE 2,400 MG/10 ML CUP PO PRN (11:21)
[2022-08-25 11:29] LABS: Glucose,Whole Blood 170 mg/dL (70-110)
--- NOTE | 2022-08-25 12:01 | XR ---
EXAMINATION TYPE: XR ankle limited RT, FL guidance operating room DATE OF EXAM: 08/25/2022 Comparison: None Clinical History: ORIF Rt Ankle Findings: Intramedullary nail fixating the distal fibula. 2 cortical screw fixation fixing the medial malleolus fracture. FLUOROSCOPY Fluoroscopy time of 1 minute 38 seconds was used during left ankle ORIF. 6 image/s document/s the pr edmundduarthur. Total DAP=1.1942 Gycm2 Impression: Intraoperative fluoroscopy as above.
[2022-08-25 12:14] LABS: Glucose,Whole Blood 159 mg/dL (70-110)
[2022-08-25 13:47] LABS: Chol/HDL Ratio 4.79 Ratio; LDL Cholesterol,Calculated 99.6 mg/dL (0.0-131.0)
[2022-08-25 16:30] LABS: Glucose,Whole Blood 208 mg/dL (70-110)
[2022-08-25] MEDS: HYDROmorphone 1 MG/ML 1 ML SYRINGE IVP PRN ×2 (17:11→21:16)
--- NOTE | 2022-08-25 17:24 | P.CRDCN ---
History of Present Illness History of present illness: HISTORY OF PRESENTING ILLNESS This is a pleasant 67-year-old with past medical history significant for CAD with prior 4 vessel CABG 25 years ago and additional 3 vessel CABG 9 years ago, previous stenting, PAD with prior left lower extremity BKA and attempted left femoral bypass which failed, complications from right femoral arterial access from prior heart catheterization, diabetes mellitus type 2, chronic kidney disease, medical noncompliance. She has been [place] all [place] including prior CABG in [facility] as well as most recently evaluated in [facility] and [facility] 12/07 with 2 patent grafts and no minto disease amenable to stenting. Additionally echocardiogram from November showed EF 30-35% with global hypokinesis, trace mitral regurgitation. She presented secondary to her prosthesis slipping and then fell and broke her right ankle. No significant change in SOB. REVIEW OF SYSTEMS At the time of my exam: CONSTITUTIONAL: Denies fever or chills. CARDIOVASCULAR: denies chest pain, +chronic shortness of breath, no orthopnea, PND or palpitations. RESPIRATORY: Denies cough. GASTROINTESTINAL: Denies abdominal pain, diarrhea, constipation, nausea or vomiting. MUSCULOSKELETAL: Denies myalgias. NEUROLOGIC: Denies numbness, tingling or weakness. ENDOCRINE: Denies fatigue, weight change, polydipsia or polyurina. GENITOURINARY: Denies burning, hematuria or urgency with micturation. HEMATOLOGIC: Denies history of anemia or bleeding. PHYSICAL EXAMINATION Vital signs reviewed. CONSTITUTIONAL: No apparent distress. HEENT: Head is normocephalic. Pupils are equal, round. Sclerae anicteric. Mucous membranes of the mouth are moist. No JVD. No carotid bruit. CHEST EXAMINATION: Lungs are clear to auscultation. No chest wall tenderness is noted on palpation or with deep breathing. HEART EXAMINATION: Regular rate and rhythm. S1, S2 heard. No murmurs, gallops or rub. ABDOMEN: Soft, nontender. Positive bowel sounds. EXTREMITIES: No lower extremity edema and no calf tenderness. +L BKA NEUROLOGIC EXAMINATION: Patient is awake, alert and oriented x3. ASSESSMENT 1. Preoperative cardiovascular exam 2. CAD with prior history of PCI as well as CABG initially 4 vessel and then repeat 9 years ago with 3 vessel 3. PAD with prior left bypass which failed with left BKA as well as toe amputations 4. DM type II 5. CKD 6. Hypertension 7. Medical noncompliance 8. Mechanical fall s/p ankle fracture 9. Chronic systolic heart failure EF 30-35% PLAN Patient is high risk for any intervention given significant CAD, PVD, diabetes however benefits outweigh risks. Fall appears to be mechanical. Patient appears stable on medications. Poor follow-up outpatient. Recommended aspirin when cleared by surgery. No further recommendations from cardiology standpoint. Please call with any questions. Past Medical History Past Medical History: Diabetes Mellitus, Hyperlipidemia, Myocardial Infarction (NC) Additional Past Medical History / Comment(s): Left bka 3 toes amputated from r foot, CABG x2, NC 14 Last Myocardial Infarction Date:: unk History of Any Multi-Drug Resistant Organisms: MRSA Date of last positivie culture/infection: 2017 MDRO Source:: left lower extremity Past Surgical History: Appendectomy, Cholecystectomy, Coronary Bypass/CABG, Heart Catheterization, Heart Catheterization With Stent, Hysterectomy Past Anesthesia/Blood Transfusion Reactions: No Reported Reaction Date of Last Stent Placement:: unk Past Psychological History: No Psychological Hx Reported Smoking Status: Never smoker Past Alcohol Use History: None Reported Past Drug Use History: None Reported Medications and Allergies Home Medications Medication Instructions Recorded Confirmed Type No Known Home Medications 08/24/22 08/24/22 History Allergies Allergy/AdvReac Type Severity Reaction Status Date / Time Iodine and Iodide Containing AdvReac Rash/Hives Verified 08/24/22 16:11 Produc ketorolac [From Toradol] AdvReac Anaphylaxis Verified 08/24/22 16:11 Penicillins AdvReac Rash/Hives Verified 08/24/22 16:11 prednisone AdvReac racing Verified 08/24/22 16:11 heart, light headedness tramadol AdvReac Confusion Verified 08/24/22 16:11 Physical Exam Vitals: Vital Signs Temp Pulse Pulse Resp BP BP Pulse Ox 08/25/22 13:51 85 168/89 98 08/25/22 13:27 77 146/76 96 08/25/22 13:12 82 152/80 97 08/25/22 12:57 78 144/76 96 08/25/22 12:42 77 133/77 95 08/25/22 12:27 78 150/77 94 L 08/25/22 12:12 83 165/82 92 L 08/25/22 12:01 84 14 142/63 96 08/25/22 11:46 84 14 150/78 97 08/25/22 11:31 87 16 146/72 100 08/25/22 11:16 97.3 F L 95 16 141/97 95 08/25/22 07:28 97.8 F 72 15 110/66 94 L 08/25/22 00:00 97.6 F 95 22 167/87 95 08/24/22 23:10 97.9 F 70 16 130/81 97 08/24/22 22:00 98.1 F 71 16 124/72 98 08/24/22 18:00 98.3 F 75 19 136/76 96 Intake and Output 08/25/22 08/25/22 08/25/22 06:59 14:59 22:59 Intake Total 40 900 Output Total 20 Balance 40 880 Intake: IV 900 Oral 40 Output: Estimated Blood Loss 20 Other: Weight 76.204 kg Results 08/25/22 06:56 08/25/22 06:56 Coagulation 08/24/22 Range/Units 16:53 PT 10.9 (9.0-12.0) sec APTT 23.9 (22.0-30.0) sec Lipids 08/25/22 Range/Units 06:56 Triglycerides 139.00 (0.00-149.00) mg/dL Cholesterol 161.00 (0.00-200.00) mg/dL HDL Cholesterol 33.60 L (40.00-60.00) mg/dL Cholesterol/HDL Ratio 4.79 Ratio CBC 08/24/22 08/25/22 Range/Units 16:53 06:56 WBC 8.2 6.0 (3.8-10.6) k/uL RBC 5.02 4.66 (3.80-5.40) m/uL Hgb 13.9 12.7 (11.4-16.0) gm/dL Hct 41.8 39.8 (34.0-46.0) % Plt Count 121 L 122 L (150-450) k/uL Comprehensive Metabolic Panel 08/24/22 08/25/22 Range/Units 16:53 06:56 Sodium 140 138 (137-145) mmol/L Potassium 4.6 4.2 (3.5-5.1) mmol/L Chloride 104 105 (98-107) mmol/L Carbon Dioxide 26 27 (22-30) mmol/L BUN 20 H 20 H (7-17) mg/dL Creatinine 0.73 0.76 (0.52-1.04) mg/dL Glucose 149 H 134 H (74-99) mg/dL Calcium 8.9 8.4 (8.4-10.2) mg/dL Current Medications Generic Name Dose Route Start Last Admin Trade Name Freq PRN Reason Stop Dose Admin Hydrocodone Bitart/Acetaminophen 1 each 08/25/22 11:20 Hydrocodone/Apap 7.5-325mg 1 Each Tab PO Q6HR PRN Pain Atorvastatin Calcium 80 mg 08/24/22 21:00 08/24/22 20:24 Atorvastatin 80 Mg Tab PO Not Given HS FELIPE Hydromorphone HCl 0.5 mg 08/25/22 11:20 Hydromorphone 0.5 Mg/0.5 Ml Syringe IVP Q3HR PRN Pain 1-5 Hydromorphone HCl 1 mg 08/25/22 11:20 Hydromorphone 1 Mg/Ml 1 Ml Syringe IVP Q4HR PRN Pain 6-10 Cefazolin Sodium 2 gm/ Sodium 50 mls @ 100 mls/hr 08/25/22 18:00 Chloride IVPB Q8H [facility] Protocol Insulin Aspart 0 unit 08/25/22 07:30 08/25/22 12:16 Insulin Aspart (Novolog) 100 Unit/Ml Vial SQ Not Given AC-TID [facility] Protocol Magnesium Hydroxide 2,400 mg 08/25/22 11:21 Magnesium Hydroxide 2,400 Mg/10 Ml Cup PO DAILY PRN Constipation Naloxone HCl 0.2 mg 08/24/22 16:23 Naloxone 0.4 Mg/Ml 1 Ml Vial IV Q2M PRN Opioid Reversal Ondansetron HCl 4 mg 08/24/22 16:23 Ondansetron 4 Mg/2 Ml Vial IVP Q8HR PRN Nausea And Vomiting Senna/Docusate Sodium 1 each 08/26/22 09:00 Sennosides-Docusate Sodium 1 Each Tab PO DAILY [facility] Intake and Output 08/25/22 08/25/22 08/25/22 06:59 14:59 22:59 Intake Total 40 900 Output Total 20 Balance 40 880 Intake: IV 900 Oral 40 Output: Estimated Blood Loss 20 Other: Weight 76.204 kg 08/25/22 06:56 08/25/22 06:56
--- NOTE | 2022-08-25 17:53 | P.PN ---
Subjective Progress Note Date: 08/25/22 Patient is doing well post-op, has no complaints. Pain controlled. 67-year-old woman with medical history of hypertension, hyperlipidemia, diabetes type 2, left BKA, CAD status post CABG and PCI presented for evaluation of ankle pain. In the emergency room, patient was afebrile, 160/95, heart rate 85, 98% on room air. CBC is remarkable for low platelets at 121. Basic metabolic panel shows BUN of 20, creatinine of 0.73. Coags are unremarkable. Ankle x-ray shows acute bimalleolar fracture. Chest x-ray shows normal-sized heart, no parenchymal abnormalities. Case was discussed with the emergency room provider and decision was made to admit the patient to medicine with orthopedic surgery's consultation. Case was then discussed with orthopedic surgery service who plans to take her to the operating room tomorrow for ORIF, and will require preoperative clearance. Assessment: Bimalleolar fracture of the ankle, right History of left BKA Preoperative clearance Diabetes type 2 Hypertension Hyperlipidemia CAD status post CABG Plan: Today, patient is afebrile, 168/89, heart rate 85, 98% on room air Start patient on aspirin 81 mg daily once okayed by surgery Start patient on atorvastatin 80 mg at bedtime Start aspart sliding scale insulin Obtain A1c, lipid panel [place] 5/325 mg every 4 hours when necessary for pain Patient is full code Heparin 5000 units 3 times a day for DVT prophylaxis Objective - Vital Signs Vital signs: Vital Signs Temp 97.3 F L 08/25/22 11:16 Pulse 85 08/25/22 13:51 Resp 14 08/25/22 12:01 BP 168/89 08/25/22 13:51 Pulse Ox 98 08/25/22 13:51 FiO2 Intake & Output 08/24/22 08/25/22 08/25/22 18:59 06:59 18:59 Intake Total 40 900 Output Total 20 Balance 40 880 Weight 76.204 kg 76.204 kg Intake: IV 900 Oral 40 Output: Estimated Blood Loss 20 Other: # Voids 2 - Labs CBC & Chem 7: 08/25/22 06:56 08/25/22 06:56 Labs: Abnormal Lab Results - Last 24 Hours (Table) 08/25/22 08/25/22 08/25/22 Range/Units 06:00 06:56 06:56 Plt Count (150-450) k/uL BUN 20 H (7-17) mg/dL Glucose 134 H (74-99) mg/dL POC Glucose (mg/dL) 140 H (70-110) mg/dL Hemoglobin A1c 9.5 H (<=6.0) % HDL Cholesterol 33.60 L (40.00-60.00) mg/dL 08/25/22 08/25/22 08/25/22 Range/Units 06:56 11:27 12:13 Plt Count 122 L (150-450) k/uL BUN (7-17) mg/dL Glucose (74-99) mg/dL POC Glucose (mg/dL) 170 H 159 H (70-110) mg/dL Hemoglobin A1c (<=6.0) % HDL Cholesterol (40.00-60.00) mg/dL 08/25/22 Range/Units 16:28 Plt Count (150-450) k/uL BUN (7-17) mg/dL Glucose (74-99) mg/dL POC Glucose (mg/dL) 208 H (70-110) mg/dL Hemoglobin A1c (<=6.0) % HDL Cholesterol (40.00-60.00) mg/dL
[2022-08-25 20:48] LABS: Glucose,Whole Blood 148 mg/dL (70-110)
[2022-08-25] MEDS: ATORVASTATIN 80 MG TAB PO SCH (21:16)
[2022-08-25] MEDS: HYDROcodone/APAP 7.5-325MG 1 EACH TAB PO PRN (22:42)
[2022-08-26] MEDS: HYDROmorphone 1 MG/ML 1 ML SYRINGE IVP PRN (01:26)
[2022-08-26 02:25] LABS: Glucose,Whole Blood 166 mg/dL (70-110)
[2022-08-26 06:19] LABS: Glucose,Whole Blood 202 mg/dL (70-110)
[2022-08-26] MEDS: INSULIN ASPART (NovoLOG) 100 UNIT/ML VIAL SQ SCH ×3 (06:36→16:55)
[2022-08-26] MEDS: SENNOSIDES-DOCUSATE SODIUM 1 EACH TAB PO SCH (09:05)
[2022-08-26] MEDS: HYDROcodone/APAP 7.5-325MG 1 EACH TAB PO PRN (09:05)
--- NOTE | 2022-08-26 10:54 | P.PN ---
Subjective Progress Note Date: 08/26/22 Patient is doing today. had episode of nausea, emesis this morning which improved with zofran. Gen: awake, alert HEENT: normocephalic, atraumatic, good hearing acuity, moist mucous membranes Resp: good air exchange, breathing comfortably with no accessory muscle use CVS: good distal perfusion x 4, GI: soft, NTTP, ND : no SPT, no CVAT, fuller catheter not present MSK: no pitting edema, no clubbing Neuro: non-focal, moving all extremities Psych: cooperative, euthymic mood Hospital course: 67-year-old woman with medical history of hypertension, hyperlipidemia, diabetes type 2, left BKA, CAD status post CABG and PCI presented for evaluation of ankle pain. In the emergency room, patient was afebrile, 160/95, heart rate 85, 98% on room air. CBC is remarkable for low platelets at 121. Basic metabolic panel shows BUN of 20, creatinine of 0.73. Coags are unremarkable. Ankle x-ray shows acute bimalleolar fracture. Chest x-ray shows normal-sized heart, no parenchymal abnormalities. Case was discussed with the emergency room provider and decision was made to admit the patient to medicine with orthopedic surgery's consultation. Case was then discussed with orthopedic surgery service who plans to take her to the operating room tomorrow for ORIF, and will require preoperative clearance. Assessment: Bimalleolar fracture of the ankle, right History of left BKA Preoperative clearance Diabetes type 2 Hypertension Hyperlipidemia CAD status post CABG Plan: Today, patient is afebrile, 154/80, 90, 99% on RA Discussed with orthopedic surgery, patient is cleared to start aspirin on radha ernst A1c is 9.5%, elevated risk of post-op infection, BS goal between 100-140, last 24 hours range between 140-200 CBC, BMP, Mg ordered for tomorrow Start patient on aspirin 81 mg daily after completion of 325mg BID course after discharge Continue atorvastatin 80 mg at bedtime Continue aspart sliding scale insulin Start levemir 5U Daily for better BS control [place] 5/325 mg every 4 hours when necessary for pain Patient is full code Heparin 5000 units 2 times a day for DVT prophylaxis Objective - Vital Signs Vital signs: Vital Signs Temp 98.3 F 08/26/22 06:58 Pulse 90 08/26/22 06:58 Resp 18 08/26/22 06:58 BP 154/80 08/26/22 06:58 Pulse Ox 99 08/26/22 06:58 FiO2 Intake & Output 08/25/22 08/26/22 08/26/22 18:59 06:59 18:59 Intake Total 900 Output Total 20 300 Balance 880 -300 Intake: IV 900 Output: Urine 300 Estimated Blood Loss 20 Other: Voiding Method Bedpan # Voids 2 1 - Labs CBC & Chem 7: 08/25/22 06:56 08/25/22 06:56 Labs: Abnormal Lab Results - Last 24 Hours (Table) 08/25/22 08/25/22 08/25/22 Range/Units 06:56 06:56 11:27 BUN 20 H (7-17) mg/dL Glucose 134 H (74-99) mg/dL POC Glucose (mg/dL) 170 H (70-110) mg/dL Hemoglobin A1c 9.5 H (<=6.0) % HDL Cholesterol 33.60 L (40.00-60.00) mg/dL 08/25/22 08/25/22 08/25/22 Range/Units 12:13 16:28 20:45 BUN (7-17) mg/dL Glucose (74-99) mg/dL POC Glucose (mg/dL) 159 H 208 H 148 H (70-110) mg/dL Hemoglobin A1c (<=6.0) % HDL Cholesterol (40.00-60.00) mg/dL 08/26/22 08/26/22 Range/Units 02:22 06:16 BUN (7-17) mg/dL Glucose (74-99) mg/dL POC Glucose (mg/dL) 166 H 202 H (70-110) mg/dL Hemoglobin A1c (<=6.0) % HDL Cholesterol (40.00-60.00) mg/dL
--- NOTE | 2022-08-26 10:55 | P.PN ---
Subjective Progress Note Date: 08/26/22 Principal diagnosis: Status post ORIF right bimalleolar ankle fracture Patient was advised at bedside, she is resting in her hospital bed. She is having very minimal discomfort at this time. She's been up with the assistance of a walker to utilize the restroom. She denies any headaches, lightheadedness, chest pain or shortness of breath Objective - Vital Signs Vital signs: Vital Signs Temp 98.3 F 08/26/22 06:58 Pulse 90 08/26/22 09:05 Resp 18 08/26/22 09:05 BP 154/80 08/26/22 06:58 Pulse Ox 99 08/26/22 06:58 FiO2 Intake & Output 08/25/22 08/26/22 08/26/22 18:59 06:59 18:59 Intake Total 900 Output Total 20 300 Balance 880 -300 Intake: IV 900 Output: Urine 300 Estimated Blood Loss 20 Other: Voiding Method Bedpan Bedside Commode # Voids 2 1 - Exam Right lower extremity: Postop splint is in good position and condition Sensation to light touch both proximal distal to the splint are intact Skin is warm to touch both proximal distal the splint She is able to wiggle her toes with minimal difficulty Logroll maneuver reproduces no discomfort in the groin, she is able to straight leg raise and no difficulty - Labs CBC & Chem 7: 08/25/22 06:56 08/25/22 06:56 Labs: Abnormal Lab Results - Last 24 Hours (Table) 08/25/22 08/25/22 08/25/22 Range/Units 06:56 06:56 11:27 BUN 20 H (7-17) mg/dL Glucose 134 H (74-99) mg/dL POC Glucose (mg/dL) 170 H (70-110) mg/dL Hemoglobin A1c 9.5 H (<=6.0) % HDL Cholesterol 33.60 L (40.00-60.00) mg/dL 08/25/22 08/25/22 08/25/22 Range/Units 12:13 16:28 20:45 BUN (7-17) mg/dL Glucose (74-99) mg/dL POC Glucose (mg/dL) 159 H 208 H 148 H (70-110) mg/dL Hemoglobin A1c (<=6.0) % HDL Cholesterol (40.00-60.00) mg/dL 08/26/22 08/26/22 Range/Units 02:22 06:16 BUN (7-17) mg/dL Glucose (74-99) mg/dL POC Glucose (mg/dL) 166 H 202 H (70-110) mg/dL Hemoglobin A1c (<=6.0) % HDL Cholesterol (40.00-60.00) mg/dL Assessment and Plan Assessment: Postoperative day #1 status post ORIF right bimalleolar ankle fracture Status post fall from standing Type 1 Diabetes Other medical comorbidities Plan: Pain control, continue with current medications DVT prophylaxis, continue use of subcu medication during hospital stay. Plan for discharge on aspirin 325 mg 2 weeks, she will then resume her 81 mg aspirin Wound care, continue to ice and elevate the extremity often. Keep splint clean and dry Nonweightbearing right lower extremity, utilize walker Medical recommendations Discharge planning: Patient is very adamant about returning home, she's been very independent as far. Would like to keep patient in hospital 1 additional night for observation, plan for discharge to home on 08/27/2022 Time with Patient: Less than 30
[2022-08-26 11:46] LABS: Glucose,Whole Blood 202 mg/dL (70-110)
[2022-08-26] MEDS: HEPARIN SODIUM,PORCINE/PF 5,000 UNIT/0.5 ML SYRINGE SQ SCH ×2 (11:50→20:32)
[2022-08-26] MEDS: INSULIN DETEMIR (LEVEMIR) 100 UNIT/ML SYR SQ SCH (12:05)
[2022-08-26 15:40] LABS: Partial Thromboplastin Time 24.7 sec (22.0-30.0); Prothrombin Time 10.5 sec (9.0-12.0)
[2022-08-26 16:19] LABS: Glucose,Whole Blood 141 mg/dL (70-110)
[2022-08-26 20:20] LABS: Glucose,Whole Blood 146 mg/dL (70-110)
[2022-08-26] MEDS: ATORVASTATIN 80 MG TAB PO SCH (20:32)
[2022-08-27 05:55] LABS: Glucose,Whole Blood 158 mg/dL (70-110)
[2022-08-27] MEDS: INSULIN DETEMIR (LEVEMIR) 100 UNIT/ML SYR SQ SCH (06:56)
[2022-08-27] MEDS: INSULIN ASPART (NovoLOG) 100 UNIT/ML VIAL SQ SCH ×2 (06:56→12:12)
[2022-08-27 07:13] LABS: Basophils % (A) 0 %; Eosinophils # (A) 0.1 k/uL (0-0.7); Eosinophils % (A) 1 %; HCT 38.2 % (34.0-46.0); HGB 12.5 gm/dL (11.4-16.0); Lymphocytes # (A) 0.9 k/uL (1.0-4.8); Lymphocytes % (A) 12 %; MCH 27.9 pg (25.0-35.0); MCHC 32.6 g/dL (31.0-37.0); MCV 85.6 fL (80.0-100.0); Mean Platelet Volume 10.8; Monocytes # (A) 0.4 k/uL (0-1.0); Monocytes % (A) 5 %; Neutrophils # (A) 5.7 k/uL (1.3-7.7); Neutrophils % (A) 79 %; Platelet Count 127 k/uL (150-450); RBC 4.47 m/uL (3.80-5.40); RDW 14.2 % (11.5-15.5); WBC 7.2 k/uL (3.8-10.6)
--- NOTE | 2022-08-27 07:41 | P.PN ---
Subjective Progress Note Date: 08/27/22 Principal diagnosis: Status post ORIF right bimalleolar ankle fracture Patient was advised at bedside, she is resting in her hospital bed. She is having very minimal discomfort at this time. She's been up with the assistance of a walker to utilize the restroom. She denies any headaches, lightheadedness, chest pain or shortness of breath Objective - Vital Signs Vital signs: Vital Signs Temp 99.6 F 08/27/22 00:53 Pulse 92 08/27/22 00:53 Resp 20 08/27/22 00:53 BP 104/62 08/27/22 00:53 Pulse Ox 92 L 08/27/22 00:53 FiO2 Intake & Output 08/26/22 08/27/22 08/27/22 18:59 06:59 18:59 Other: Voiding Method Bedside Commode Bedside Commode # Voids 1 1 - Exam Right lower extremity: Postop splint is in good position and condition Sensation to light touch both proximal distal to the splint are intact Skin is warm to touch both proximal distal the splint She is able to wiggle her toes with minimal difficulty Logroll maneuver reproduces no discomfort in the groin, she is able to straight leg raise and no difficulty - Labs CBC & Chem 7: 08/27/22 06:21 08/25/22 06:56 Labs: Abnormal Lab Results - Last 24 Hours (Table) 08/26/22 08/26/22 08/26/22 Range/Units 11:41 16:18 20:18 Plt Count (150-450) k/uL Lymphocytes # (1.0-4.8) k/uL POC Glucose (mg/dL) 202 H 141 H 146 H (70-110) mg/dL 08/27/22 08/27/22 Range/Units 05:51 06:21 Plt Count 127 L (150-450) k/uL Lymphocytes # 0.9 L (1.0-4.8) k/uL POC Glucose (mg/dL) 158 H (70-110) mg/dL Assessment and Plan Assessment: Postoperative day #2 status post ORIF right bimalleolar ankle fracture Status post fall from standing Type 1 Diabetes Other medical comorbidities Plan: Pain control, plan for discharge on oral medication DVT prophylaxis, aspirin 325 mg daily for 2 weeks, then transition back to a 1 mg daily Wound care, continue to ice and elevate the extremity often. Keep splint clean and dry Nonweightbearing right lower extremity, utilize walker Medical recommendations Discharge planning: Plan for discharge home today Time with Patient: Less than 30
[2022-08-27 07:47] VITALS: BP 116/68; PULSE 79; RESP 17; TEMP 98.7
[2022-08-27 07:53] LABS: African American GFR (CKD) 86 (>60 ml/min/1.73 sqM); Anion Gap 12 mmol/L; Blood Urea Nitrogen 22 mg/dL (7-17); Calcium 8.5 mg/dL (8.4-10.2); Carbon Dioxide 25 mmol/L (22-30); Chloride 98 mmol/L (98-107); Glucose 139 mg/dL (74-99); Magnesium 1.8 mg/dL (1.6-2.3); Non-African American GFR(CKD) 75 (>60 ml/min/1.73 sqM); Potassium 4.4 mmol/L (3.5-5.1); Sodium 135 mmol/L (137-145)
[2022-08-27] MEDS: HEPARIN SODIUM,PORCINE/PF 5,000 UNIT/0.5 ML SYRINGE SQ SCH (08:10)
[2022-08-27] MEDS: SENNOSIDES-DOCUSATE SODIUM 1 EACH TAB PO SCH (08:10)
--- NOTE | 2022-08-27 09:50 | P.DS ---
Providers Date of admission: 08/24/22 16:23 Expected date of discharge: 08/27/22 Attending physician: Geovani Ahmadi MD Consults: 08/24/22 16:23 Consult Physician Routine Consulting Provider: Triston Ambriz Consult Reason/Comments: bimalleolar fracture Do you want consulting provider notified?: Already Contacted Primary care physician: Stated None Hospital Course: Date of admission: 08/24/2022 Date of discharge: 08/27/2022 Admission diagnosis: Displaced and comminuted right bimalleolar ankle fracture Discharge diagnosis: Post ORIF right ankle bimalleolar fracture Attending physician: Dr. Ambriz Surgical procedures: Right ankle bimalleolar fracture Brief history: Patient is a 67-year-old female who presented to [facility] for evaluation after falling and injuring her right ankle. Patient had deformity and discomfort in the ankle after the fall. Imaging and lab tests were done prior to arrival hospital, images demonstrated a displaced and comminuted right bimalleolar ankle fracture. Patient was admitted under our orthopedic care plan for surgical intervention, internal medicine was placed on consult for management. Hospital course: Details of patient's surgery can be found in operative report. Patient tolerated the procedure well and was subsequently transported to orthopedic floor. Patient's orthopeidc and medical care was provided daily. Patient had daily laboratory tests performed for evaluation of overall blood counts. Patient had daily physical therapy to include strengthening range of motion as well as education with walker ambulation. Patient was treated with heparin for their postoperative DVT prophylaxis during their inpatient stay. Patient was noted to have a relatively uneventful postoperative course. Patient reported satisfactory pain control with oral pain medications by postoperative day 1. Patient showed satisfactory progress with physical therapy. Patient moved steadily through the program and had no difficulty meeting the goals by postoperative day 2. Given patient's otherwise satisfactory course and having met physical therapy goals, plan is to discharge patient home on postoperative day 2. Discharge condition/disposition: Patient will be discharged home in stable condition. Discharge medications: Instructions are given on resumption of patient's normal daily medications per primary care recommendation, in addition patient will be prescribed [place] 7.5 mg/325 mg, senna, aspirin 325 mg, Keflex 500 mg. Discharge instructions: 1. Nonweightbearing right lower extremity 2. Keep splint clean, dry, and intact 3. Ice and elevate often 4. Aspirin 325 mg daily for 2 weeks for DVT prophylaxis 5. Pain medication and stool softeners as needed 6. Plan for [facility]-up [facility] 2 weeks Procedures: Open reduction internal fixation right ankle bimalleolar fracture Patient Condition at Discharge: Fair Plan - Discharge Summary Discharge Rx Participant: No New Discharge Prescriptions: New Cephalexin [Keflex] 500 mg PO Q6HR 5 Days #20 cap Sennosides/Docusate Sodium [Senna-S 8.6-50 mg Tablet] 1 each PO DAILY PRN #28 tablet PRN Reason: Constipation Blood Sugar Diagnostic [Glucose Test Strip] 1 each MC ACHS #120 strip Syringe-Needle,Insulin,0.5 ml [Sure Comfort] 1 each MC TID #90 each Insulin Detemir (Levemir) [Levemir] 5 unit SQ DAILY@0700 #1 each Atorvastatin [Lipitor] 80 mg PO HS #30 tab Aspirin 325 mg PO DAILY #30 tab HYDROcodone/APAP 7.5-325MG [[place] 7.5] 1 each PO Q6HR PRN #28 tab PRN Reason: Pain INSULIN ASPART (NovoLOG) [NovoLOG (formulary)] 3 unit SQ AC-TID #1 each Discharge Medication List Aspirin 325 mg PO DAILY #30 tab 08/27/22 [Rx] Atorvastatin [Lipitor] 80 mg PO HS #30 tab 08/27/22 [Rx] Blood Sugar Diagnostic [Glucose Test Strip] 1 each MC ACHS #120 strip 08/27/22 [Rx] Cephalexin [Keflex] 500 mg PO Q6HR 5 Days #20 cap 08/27/22 [Rx] HYDROcodone/APAP 7.5-325MG [[place] 7.5] 1 each PO Q6HR PRN #28 tab 08/27/22 [Rx] INSULIN ASPART (NovoLOG) [NovoLOG (formulary)] 3 unit SQ AC-TID #1 each 08/27/22 [Rx] Insulin Detemir (Levemir) [Levemir] 5 unit SQ DAILY@0700 #1 each 08/27/22 [Rx] Sennosides/Docusate Sodium [Senna-S 8.6-50 mg Tablet] 1 each PO DAILY PRN #28 tablet 08/27/22 [Rx] Syringe-Needle,Insulin,0.5 ml [Sure Comfort] 1 each MC TID #90 each 08/27/22 [Rx] Follow up Appointment(s)/Referral(s): None,Stated [Primary Care Provider] - 1-2 days (Please call for appointment.) Triston Ambriz DO [Doctor of Osteopathic Medicine] - 09/12/22 9:00 am Activity/Diet/Wound Care/Special Instructions: Orthopedic discharge instructions: 1. Nonweightbearing right lower extremity 2. Splint clean and dry, ice and elevate often 3. Pain medication as needed. 4. Aspirin 325 mg daily for 2 weeks, after which you should switch to aspirin 81mg daily 5. Take antibiotics as prescribed 6. [facility]-up at [facility] 2 weeks Discharge Disposition: HOME SELF-CARE
[2022-08-27] MEDS: HYDROcodone/APAP 7.5-325MG 1 EACH TAB PO PRN (10:15)
--- NOTE | 2022-08-27 10:58 | P.PN ---
Subjective Progress Note Date: 08/27/22 Patient is doing well today. Medically stable for discharge Gen: awake, alert HEENT: normocephalic, atraumatic, good hearing acuity, moist mucous membranes Resp: good air exchange, breathing comfortably with no accessory muscle use CVS: good distal perfusion x 4, GI: soft, NTTP, ND : no SPT, no CVAT, fuller catheter not present MSK: no pitting edema, no clubbing Neuro: non-focal, moving all extremities Psych: cooperative, euthymic mood Hospital course: 67-year-old woman with medical history of hypertension, hyperlipidemia, diabetes type 2, left BKA, CAD status post CABG and PCI presented for evaluation of ankle pain. In the emergency room, patient was afebrile, 160/95, heart rate 85, 98% on room air. CBC is remarkable for low platelets at 121. Basic metabolic panel shows BUN of 20, creatinine of 0.73. Coags are unremarkable. Ankle x-ray shows acute bimalleolar fracture. Chest x-ray shows normal-sized heart, no parenchymal abnormalities. Case was discussed with the emergency room provider and decision was made to admit the patient to medicine with orthopedic surgery's consultation. Case was then discussed with orthopedic surgery service who plans to take her to the operating room tomorrow for ORIF, and will require preoperative clearance. Assessment: Bimalleolar fracture of the ankle, right History of left BKA Preoperative clearance Diabetes type 2 Hypertension Hyperlipidemia CAD status post CABG Plan: Start patient on aspirin 81 mg daily after completion of 325mg daily course after discharge, this was written in her discharge instructions Continue atorvastatin 80 mg at bedtime Continue aspart sliding scale insulin Start levemir 5U Daily for better BS control Franklin 5/325 mg every 4 hours when necessary for pain Patient discharged on insulin supplies, levemir, and aspart Pt is medically cleared for discharge Patient is full code Heparin 5000 units 2 times a day for DVT prophylaxis Objective - Vital Signs Vital signs: Vital Signs Temp 98.7 F 08/27/22 06:46 Pulse 79 08/27/22 06:46 Resp 17 08/27/22 06:46 BP 116/68 08/27/22 06:46 Pulse Ox 96 08/27/22 06:46 FiO2 Intake & Output 08/26/22 08/27/22 08/27/22 18:59 06:59 18:59 Other: Voiding Method Bedside Commode Bedside Commode # Voids 1 1 - Labs CBC & Chem 7: 08/27/22 06:21 08/27/22 06:21 Labs: Abnormal Lab Results - Last 24 Hours (Table) 08/26/22 08/26/22 08/26/22 Range/Units 11:41 16:18 20:18 Plt Count (150-450) k/uL Lymphocytes # (1.0-4.8) k/uL Sodium (137-145) mmol/L BUN (7-17) mg/dL Glucose (74-99) mg/dL POC Glucose (mg/dL) 202 H 141 H 146 H (70-110) mg/dL 08/27/22 08/27/22 08/27/22 Range/Units 05:51 06:21 06:21 Plt Count 127 L (150-450) k/uL Lymphocytes # 0.9 L (1.0-4.8) k/uL Sodium 135 L (137-145) mmol/L BUN 22 H (7-17) mg/dL Glucose 139 H (74-99) mg/dL POC Glucose (mg/dL) 158 H (70-110) mg/dL
[2022-08-27 11:07] LABS: Glucose,Whole Blood 260 mg/dL (70-110)
[2022-08-27 11:43] VITALS: BMI 31.7
--- NOTE | 2022-08-29 13:09 | P.OP ---
Date of Procedure: 08/25/22 Preoperative Diagnosis: 1. Right Trimal ankle fracture 2. DM I uncontrolled 3. Complex medical patient 4. S/p ffs Postoperative Diagnosis: 1. Right Trimal ankle fracture 2. DM I uncontrolled 3. Complex medical patient 4. S/p ffs Procedure(s) Performed: 1. ORIF right ankle trimalleolar fracture 2. Application of short leg splint Implants: Arthrex fibulock nail two medial mal screws Anesthesia: MILY Surgeon: Triston Ambriz Criminal Investigator [employer] #1: Aldair Martin (Was present and assisted with all aspects of the case from positioning to dressing placement) Estimated Blood Loss (ml): 20 IV fluids (ml): 500 Urine output (ml): 0 Pathology: none sent Condition: stable Disposition: PACU Indications for Procedure: Josi Lainez is a 67 yo female presenting for evaluation of sudden onset right ankle pain, inability to ambulate after fall and twisting injury at home. It was my pleasure to have seen and examined Josi Lainez. In our visit today we have had a chance to go over subjective complaints, physical examination findings and treatments including the natural course history without intervention and various interventional options. Her imaging demonstrates bimalleolar ankle fracture. On physical exam, Josi Lainez demonstrates pain with motion of RLE and ankle, which is NV intact at this time. I have explained to the patient that this fracture needs stabilization. Based on the patients imaging, physical exam, and the rapid progression and disabling nature of her symptoms, at this time I recommend surgery in the form or a: ORIF right ankle I discussed the risk and benefits of this procedure at length with Josi Lainez. Questions were invited and answered, and the patient wishes to proceed as outlined below. Currently, I am recommendin. ORIF right ankle Description of Procedure: The patient was seen and examined in the preoperative area. All preoperative p rotocols were followed. Informed consent was obtained risks and benefits of the procedure were discussed at length. Risks including bleeding infection damage to the surrounding tissue and risk of reoperation were discussed with the patient. Risk of anesthesia up to and including was a discussed with the patient. These are outlined in the risk reviewed. They were willing to accept these risks and all of the risks of surgery. The patient was given a weight- based dose of antibiotics in the form of 2 g Ancef. The patient was seen and evaluated by the anesthesia team who deemed them fit for surgery. The site was marked, the patient was willing to proceed with the procedure. The patient was transferred to the operative suite by the Department of anesthesia. There were then drifted off to sleep by the department of anesthesia and GETA anesthesia was used. Once adequate anesthesia had been obtained the patient was carefully transferred to the operative bed. All bony prominences were padded accordingly. SCDs were placed on the nonoperative lower extremities. Arms were well padded. Right lower extremity was exposed placed on a bone foam ramp and a bump placed under the right hip. Tourniquet was placed on the patient's right upper thigh and secured. 10:15 placed on this. Nonoperative leg was secured to the table with tape Preoperative briefing was done with the operative team and everyone was ready for the procedure to start. The patients right lower extremity was then prepped and draped in the normal sterile fashion. Timeout was then performed and all parties in agreement with the procedure to be performed. Fluoroscopic guidance was used to identify the fracture and reduce this closed. We then made a small skin neck distal to the fibula to allow for further reduction. The guidepin for the fibula nail was then positioned optimally on AP and lateral fluoroscopy and was inserted. Once inserted the opening reamer was placed over this followed by the proximal reamer once this was completed the nail was sized and placed over the wire. Wire was then removed the nail was in good position and once in good position the tines proximally were then opened and locked. Through the guide then we placed 2 distal locking screws through the nail which were placed in good position and good purchase. This allowed for good reduction as well as stability of the fracture this area. A cotton test was then performed an external rotation test under fluoroscopic imaging confirmed no syndesmotic injury. We then turned our attention the medial ankle. Skin neck was made and 2 wires were placed parallel into the medial malleolus fracture these were then measured and drilled. 2 cannulated 40 screws were then placed over the wires and had good purchase. Fracture remained reduced. Posterior malleolus fracture was small and became more reduced after this reduction. Ankle was taken through a range of motion under fluoroscopy all fractures were stable. The wounds were then copiously irrigated with normal sterile saline and closed 2-0 Vicryl and 2-0 nylon. The wounds were then dressed sterilely with Adaptic 4 x 4 ABDs. She was placed in a well molded well-padded short-leg splint on the right. The patient was then transferred back to their hospital bed. There were awakened by department of anesthesia having tolerated the procedure very well with no complications. The patient was then transported to the postoperative care unit in stable condition.
== END 2022-08-27 13:41 | disposition home or self-care (01) | DRG 493 ==
LOC: EC 14:45 → 4SSUR 16:23
PROVIDERS: ADMIT Student in an Organized Health Care Education/Training Program; ATTEND Student in an Organized Health Care Education/Training Program
PROC: 0QSG04Z Reposition Right Tibia with Internal Fixation Device, Open Approach (ICD-10-PCS; principal; 2022-08-25 10:00)
PROC: 0QSJ04Z Reposition Right Fibula with Internal Fixation Device, Open Approach (ICD-10-PCS; principal; 2022-08-25 10:00)
DX: S82.841A Displaced bimalleolar fracture of right lower leg, initial encounter for closed fracture (principal); I13.0 Hypertensive heart and chronic kidney disease with heart failure and stage 1 through stage 4 chronic kidney disease, or unspecified chronic kidney disease; I50.22 Chronic systolic (congestive) heart failure; W01.0XXA Fall on same level from slipping, tripping and stumbling without subsequent striking against object, initial encounter; X50.1XXA Overexertion from prolonged static or awkward postures, initial encounter; Y92.009 Unspecified place in unspecified non-institutional (private) residence as the place of occurrence of the external cause; Y92.410 Unspecified street and highway as the place of occurrence of the external cause; Y93.01 Activity, walking, marching and hiking; I34.0 Nonrheumatic mitral (valve) insufficiency; N18.9 Chronic kidney disease, unspecified; Z97.14 Presence of artificial left leg (complete) (partial); Z95.1 Presence of aortocoronary bypass graft; Z98.61 Coronary angioplasty status; D69.6 Thrombocytopenia, unspecified; E10.22 Type 1 diabetes mellitus with diabetic chronic kidney disease; E78.5 Hyperlipidemia, unspecified; I25.10 Atherosclerotic heart disease of native coronary artery without angina pectoris; I25.2 Old myocardial infarction; Z79.4 Long term (current) use of insulin; Z89.512 Acquired absence of left leg below knee; Z91.199 Patient's noncompliance with other medical treatment and regimen due to unspecified reason; Z89.421 Acquired absence of other right toe(s); Z88.5 Allergy status to narcotic agent; Z88.0 Allergy status to penicillin; Z88.8 Allergy status to other drugs, medicaments and biological substances; Z91.041 Radiographic dye allergy status
CPT/HCPCS: 29515; 71046; 80048; 80061; 83036; 83735; 85025; 85610; 85730; 93005; 96372; 99285

== ENCOUNTER 2022-10-31 15:35 | Emergency (ER) | payer MEDICARE, OTHER ==
[2022-10-31] MEDS ORDERED: HYDROmorphone 0.5 MG/0.5 ML SYRINGE IM STA (16:23)
[2022-10-31] MEDS ORDERED: DIPH,PERTUS(ACELL)TETVAC-LF 0.5 ML VIAL IM ONE (16:42)
--- NOTE | 2022-10-31 17:07 | XR ---
EXAMINATION TYPE: XR knee complete RT DATE OF EXAM: 10/31/2022 COMPARISON: None HISTORY: Fall, pain TECHNIQUE: 3 view right knee FINDINGS: No acute fracture or dislocation is evident. No joint effusion is evident. Soft tissues at the level of the patella appear unremarkable. No radiopaque foreign bodies evident. There are vascula r clips present within the posterior knee. Vascular calcification is noted. Follow up exams can be pe rformed 7-10 days from acute trauma for continued pain. IMPRESSION: 1. No acute osseous abnormality right knee
--- NOTE | 2022-10-31 17:10 | XR ---
EXAMINATION TYPE: XR ankle complete RT DATE OF EXAM: 10/31/2022 COMPARISON: 08/24/2022 HISTORY: Fall, pain TECHNIQUE: 3 view right ankle FINDINGS: Prior fracture repair is evident within the distal fibula and medial malleolus. Ankle morti se appears intact. No acute fracture is identified. There may be incomplete healing of the medial mal leolar fracture. 2 screws are present through this region. Plantar calcaneal heel spur is present. Soft tissues appear normal. IMPRESSION: 1. An acute displaced fracture is not identified. There may be some continued healing at the medial malleolus. Follow-up examinations could be performed 7-10 days from acute trauma for continued pain.
[2022-10-31 17:12] VITALS: RESP 16
[2022-10-31] MEDS ORDERED: ACET/COD 300 MG/30 MG STARTER PACK 6 TAB BTL PO STA (17:16)
--- NOTE | 2022-10-31 17:18 | ED ---
Fall HPI - General Chief Complaint: Fall Stated Complaint: Fall Time Seen by Provider: 10/31/22 16:05 Source: patient Mode of arrival: wheelchair - History of Present Illness Initial Comments: Patient is a 67-year-old female who presents to the emergency department for fall. Patient has left BKA states she had an issue with her prosthetic and fell onto her right knee twisting her ankle during the fall. She did not have a head or lose consciousness. Patient has pain in the inside of her right ankle and to a lesser extent, the right knee. She has abrasion on the right knee. She has history right ankle surgery with Dr. Ambriz in August. Last tetanus unknown - Related Data Previous Rx's Medication Instructions Recorded Aspirin 325 mg PO DAILY #30 tab 08/27/22 Atorvastatin [Lipitor] 80 mg PO HS #30 tab 08/27/22 Blood Sugar Diagnostic [Glucose 1 each MC ACHS #120 strip 08/27/22 Test Strip] Cephalexin [Keflex] 500 mg PO Q6HR 5 Days #20 cap 08/27/22 HYDROcodone/APAP 7.5-325MG [[place] 1 each PO Q6HR PRN #28 tab 08/27/22 7.5] INSULIN ASPART (NovoLOG) [NovoLOG 3 unit SQ AC-TID #1 each 08/27/22 (formulary)] Insulin Detemir (Levemir) [Levemir] 5 unit SQ DAILY@0700 #1 each 08/27/22 Sennosides/Docusate Sodium 1 each PO DAILY PRN #28 tablet 08/27/22 [Senna-S 8.6-50 mg Tablet] Syringe-Needle,Insulin,0.5 ml 1 each MC TID #90 each 08/27/22 [Sure Comfort] Allergies Allergy/AdvReac Type Severity Reaction Status Date / Time Iodine and Iodide Containing AdvReac Rash/Hives Verified 10/31/22 15:54 Produc ketorolac [From Toradol] AdvReac Anaphylaxis Verified 10/31/22 15:54 Penicillins AdvReac Rash/Hives Verified 10/31/22 15:54 prednisone AdvReac racing Verified 10/31/22 15:54 heart, light headedness tramadol AdvReac Confusion Verified 10/31/22 15:54 Review of Systems ROS Statement: Those systems with pertinent positive or pertinent negative responses have been documented in the HPI. ROS Other: All systems not noted in ROS Statement are negative. 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, CABG x2, [place] 14 Last Myocardial Infarction Date:: unk History of Any Multi-Drug Resistant Organisms: MRSA Date of last positivie culture/infection: 2017 MDRO Source:: left lower extremity Past Surgical History: Appendectomy, Cholecystectomy, Coronary Bypass/CABG, Heart Catheterization, Heart Catheterization With Stent, Hysterectomy, Orthopedic Surgery Past Anesthesia/Blood Transfusion Reactions: No Reported Reaction Date of Last Stent Placement:: unk Past Psychological History: No Psychological Hx Reported Smoking Status: Never smoker Past Alcohol Use History: None Reported Past Drug Use History: None Reported General Exam Limitations: no limitations General appearance: alert Head exam: Present: atraumatic, normocephalic, normal inspection Respiratory exam: Present: normal lung sounds bilaterally. Absent: respiratory distress, wheezes, rales, rhonchi, stridor Cardiovascular Exam: Present: regular rate, normal rhythm, normal heart sounds. Absent: systolic murmur, diastolic murmur, rubs, gallop, clicks Left Upper Leg exam: Present: normal inspection, full ROM. Absent: tenderness, s welling Knee exam: Present: full ROM, tenderness (Anteriorly), abrasion. Absent: swelling, ecchymosis, deformity, crepitus, erythema, effusion, pain/laxity with valgus, pain/laxity with varus Ankle exam: Present: full ROM, tenderness (Medially), swelling (Mild medially). Absent: abrasion, laceration, ecchymosis, deformity Neurovascular tendon exam: Present: no vascular compromise Neurological exam: Present: alert Psychiatric exam: Present: normal affect, normal mood Course Vital Signs 10/31/22 10/31/22 10/31/22 15:50 17:10 17:42 Temperature 98.9 F 97.6 F Pulse Rate 75 76 67 Respiratory 20 16 16 Rate Blood Pressure 155/65 156/80 133/78 O2 Sat by Pulse 98 99 98 Oximetry Procedures - Orthopedic Splinting/Casting Injury #1 Side: right Lower Extremity Injury Location: ankle Lower Extremity Immobilizer: [employer] Medical Decision Making - Medical Decision Making Was pt. sent in by a medical professional or institution (YESICA Henson, [facility], urgent care, hospital, or halfway...) When possible be specific @ -No Did you speak to anyone other than the patient for history (EMS, parent, family, police, friend...)? What history was obtained from this source @ -No Did you review nursing and triage notes (agree or disagree)? Why? @ -I reviewed and mostly agree. Symptoms are right-sided. Were old charts reviewed (outside hosp., previous admission, EMS record, old EKG, old radiological studies, urgent care reports/EKG's, halfway records)? Report findings @ -No old charts were reviewed Differential Diagnosis (chest pain, altered mental status, abdominal pain women, abdominal pain men, vaginal bleeding, weakness, fever, dyspnea, syncope, headach e, dizziness, GI bleed, back pain, seizure, CVA, palpatations, mental health)? @ -Contusion, ankle fracture, ankle sprain. This list is not meant to be all-inclusive EKG interpreted by me (3pts min.). @ -As above X-rays interpreted by me (1pt min.). @ -No acute fracture dislocation of the right knee. No acute fracture dislocation of the right ankle. There may be some healing of the medial malleolus CT interpreted by me (1pt min.). @ -None done U/S interpreted by me (1pt. min.). @ -None done What testing was considered but not performed or refused? (CT, X-rays, U/S, labs)? Why? @ -None What meds were considered but not given or refused? Why? @ -None Did you discuss the management of the patient with other professionals (professionals i.e. YESICA Henosn, [facility], lab, RT, psych nurse, elementary school social worker, cardiopulmonary physical therapist, teacher, asset protection officer, welfare case worker)? Give summary @ -No Was smoking cessation discussed for >3mins.? @ -No Was critical care preformed (if so, how long)? @ -No Were there social determinants of health that impacted care today? How? (Homelessness, low income, unemployed, alcoholism, drug addiction, transportation, low edu. Level, literacy, decrease access to med. care, [facility], rehab)? @ -No Was there de-escalation of care discussed even if they declined (Discuss DNR or withdrawal of care, Hospice)? DNR status @ -No What co-morbidities impacted this encounter? (DM, HTN, Smoking, COPD, CAD, Cancer, CVA, ARF, Chemo, Hep., AIDS, mental health diagnosis, sleep apnea, morbid obesity)? @ -left BKA Was patient admitted / discharged? Hospital course, mention meds given and route, prescriptions, significant lab abnormalities, going to OR and other pertinent info. @ -Discharge in ankle splint for right ankle sprain. Tetanus updated. Patient did have recent right ankle surgery and has swelling to the medial ankle. Crutches are not realistic due to left BKA. Patient has a wheelchair at home which she will use as needed. She will bear weight as tolerated. We discussed sprain care at home. She will follow-up with Dr. Ambriz in 1- 2 days. It is also recommended patient has her prosthetic adjusted. Undiagnosed new problem with uncertain prognosis? @ -No Drug Therapy requiring intensive monitoring for toxicity (Heparin, Nitro, Insulin, Cardizem)? @ -No Were any procedures done? @ -splinting Diagnosis/symptom? @ -Right ankle sprain, fall, abrasion Acute, or Chronic, or Acute on Chronic? @ -Acute Uncomplicated (without systemic symptoms) or Complicated (systemic symptoms)? @ -Uncomplicated Side effects of treatment? @ -No Exacerbation, Progression, or Severe Exacerbation? @ -No Poses a threat to life or bodily function? How? (Chest pain, [place], [place], pneumonia, PE, COPD, DKA, ARF, appy, cholecystitis, CVA, Diverticulitis, Homicidal, Suicidal, threat to staff... and all critical care pts) @ -No Dr. Preston is my attending Disposition Clinical Impression: Right ankle sprain, Fall, Abrasion Disposition: HOME SELF-CARE Condition: Good Instructions (If sedation given, give patient instructions): Fall Prevention for Older Adults (ED) Additional Instructions: Rest and elevate the joint as much as possible. Ice the injury for the next 24- 48 hours. If symptoms continue after, apply warm compress. Take Tylenol for pain. States Tylenol 3 for severe pain. Keep splint on and use wheelchair at home. Very edge of pain tolerates. Follow-up with Dr. Ambriz and prosthetic doctor in 1 to 2 days. Return to the emergency department if you experience new, concerning, or worsening symptoms. Is patient prescribed a controlled substance at d/c from ED?: No Referrals: None,Stated [Primary Care Provider] - 1-2 days
[2022-10-31 17:44] VITALS: BP 133/78; PULSE 67; TEMP 97.6
== END 2022-10-31 17:45 | disposition home or self-care (01) ==
LOC: EC 15:35
DX: S93.401A Sprain of unspecified ligament of right ankle, initial encounter (principal); S80.211A Abrasion, right knee, initial encounter; E11.9 Type 2 diabetes mellitus without complications; E78.5 Hyperlipidemia, unspecified; I25.2 Old myocardial infarction; Z88.0 Allergy status to penicillin; Z88.5 Allergy status to narcotic agent; Z88.8 Allergy status to other drugs, medicaments and biological substances; Z79.82 Long term (current) use of aspirin; Z79.4 Long term (current) use of insulin; Z79.899 Other long term (current) drug therapy; Z23 Encounter for immunization; X50.1XXA Overexertion from prolonged static or awkward postures, initial encounter
CPT/HCPCS: 73562; 73610; 90715; 99284; 90471; 96372; J1170